=== PATIENT | male | born 1955 | race Caucasian/White ===

== ENCOUNTER → 2019-01-28 | Outpatient (CLI) | payer OTHER ==
--- NOTE | 2019-01-28 12:30 | XR ---
EXAMINATION TYPE: XR lumbosacral spine min 4V DATE OF EXAM: 01/28/2019 CLINICAL HISTORY: Lumbago. Left sciatica pain. TECHNIQUE: Frontal, lateral, and oblique images of the lumbar spine are obtained. COMPARISON: None FINDINGS: There are 5 lumbar type vertebral bodies identified. The lumbar spine shows satisfactory alignment without evidence of acute fracture or dislocation. Vertebral body heights and disk space he ights are within normal limits. There is mild retrolisthesis of L2 on L3, L3 on L4, and L4 on L5. Mod erate multilevel degenerative disc disease is seen as facet arthropathy, anterior osteophytes, interv ertebral disc space narrowing, and end plate sclerosis at multiple levels. Oblique images demonstrate no evidence of pars interarticularis defects. Neural foraminal narrowing is seen bilaterally at L4-L 5. The overlying soft tissue appears unremarkable. IMPRESSION: No acute fracture is seen in the lumbar spine. Multilevel malalignment is likely on a de generative basis. Moderate multilevel degenerative disc disease of the lumbar spine resulting in mild radiographic neural foraminal narrowing at L4-L5 bilaterally. This could be more accurately assessed with MRI.
== END | disposition home or self-care (01) ==
LOC: RADXRYALE 11:54
PROVIDERS: ATTEND Physician Assistant Medical
DX: M48.061 Spinal stenosis, lumbar region without neurogenic claudication (principal); M51.16 Intervertebral disc disorders with radiculopathy, lumbar region
CPT/HCPCS: 72110

== ENCOUNTER → 2019-02-06 | Outpatient (CLI) | payer OTHER ==
--- NOTE | 2019-02-06 22:18 | MR ---
EXAMINATION TYPE: MR lumbar spine wo/w con DATE OF EXAM: 02/06/2019 COMPARISON: Lumbar spine x-ray January 28, 2019. HISTORY: Lumbago with sciatica, left side and other intervertebral disc degeneration and weakness all per order. Back pain for 1.5 years extending into left lower extremity per patient. TECHNIQUE: Multiplanar, multisequence images of the lumbar spine is performed without and with IV contrast, util izing 13.5 mL intravenous Gadavist FINDINGS: Sagittal images of the lumbar spine show vertebral body heights to remain satisfactory. Mul tiple Schmorl nodes are identified in the endplates. Straightened alignment is redemonstrated. Multil evel disc desiccation is present. There is moderate disc space narrowing L2-L3 and L4-L5 levels with moderate anterior spurring and heterogeneous moderately opaque to endplate changes most prominent at L4-L5 level. There is vacuum disc phenomenon L5-S1 level. Small hemangioma seen posterior inferior L1 level. The conus medullaris is somewhat low in position in the mid L2 level without abnormal signal . Post contrast images show no suspicious enhancement. There is evidence of prior surgery with master brewer ior spinous process resection L2-L5 levels noted. Axial images at T12-L1 and L1-L2 levels show mild facet degenerative changes bilaterally but spinal c anal is preserved and bilateral neural foramina are patent. Axial images at L2-L3 level show moderate broad disc bulge mildly effacing the anterior thecal sac. T here is [id number] facet degenerative changes bilaterally. Spinous process resection is noted. There is mild bilateral anterior inferior neural foraminal narrowing appreciated. Axial images at the L3-L4 level show moderate broad disc bulge. There is prominence of epidural fat a t this level anteriorly so no spinal canal effacement. There is mild/moderate facet degenerative damico ges bilaterally. Posterior spinous process resection is noted. There is [id number] bilateral an terior inferior neural foraminal narrowing at this level identified. Axial images at the L4-L5 level moderate to advanced broad disc bulge without thecal sac effacement a s there is prominent anterior epidural fat redemonstrated. There is moderate facet degenerative mcclain es bilaterally. Posterior spinous process resection is noted. There is moderate to advanced bilateral neural foraminal narrowing encroaching on both L4 nerves worse on the right side sagittal image 13. Axial images at the L5-S1 level show moderate facet degenerative changes bilaterally. There is mild-t o-moderate broad disc bulge not effacing the anterior thecal sac as there is prominent anterior epidu ral fat noted even more prominent than more cranial levels. There is mild right and more advanced lef t-sided neural foraminal narrowing due to foraminal disc protrusion component which encroaches on the left L5 nerve axial image 5 and sagittal image 5. Posterior spinous process resection is noted. No suspicious incidental retroperitoneal findings are seen. IMPRESSION: Postsurgical change L2-L5 level. Multilevel degenerative changes seen most prominent in t he mid to lower lumbar spine. Attention to the L5-S1 level where eccentric left foraminal disc hernia tion or protrusion component causes advanced left-sided neural foraminal narrowing and encroachment o n the left L5 nerve likely accounting for patient's symptoms.
== END | disposition home or self-care (01) ==
LOC: RADMRIMAIN 14:10
PROVIDERS: ATTEND Family Medicine
DX: M48.07 Spinal stenosis, lumbosacral region (principal); M51.27 Other intervertebral disc displacement, lumbosacral region; M47.816 Spondylosis without myelopathy or radiculopathy, lumbar region
CPT/HCPCS: 72158; A9585

== ENCOUNTER → 2021-01-13 | Outpatient (CLI) | payer MEDICARE, OTHER ==
--- NOTE | 2021-01-13 11:54 | XR ---
EXAMINATION TYPE: XR cervical spine comp DATE OF EXAM: 01/13/2021 CLINICAL HISTORY: pain COMPARISON: 04/20/2016 TECHNIQUE: Frontal, lateral, oblique, swimmers, and open mouth view of the cervical spine are obtaine d. FINDINGS: Postoperative changes of cervical fusion and discectomy. Anterior cervical fixation plate i s in place extending from C3 through C7. Intervertebral spacers are in place. IMPRESSION: Stable postoperative alignment.
== END | disposition home or self-care (01) ==
LOC: RADXRYALE 11:31
PROVIDERS: ATTEND Physician Assistant Medical
DX: Z98.890 Other specified postprocedural states (principal)
CPT/HCPCS: 72050

== ENCOUNTER → 2021-05-03 | Outpatient (CLI) | payer MEDICARE, OTHER ==
--- NOTE | 2021-05-03 16:01 | XR ---
EXAMINATION TYPE: XR lumbosacral spine 5 views DATE OF EXAM: 05/03/2021 Comparison: 26/03/2019 Clinical History: 65-year-old male [id number], M5442, M461 LBP, SCIATICA, SACROILIITIS Findings: Moderate degenerative disc disease L4-L5 and L5-S1. Mild additional levels. Prominent anterior endpla te spondylosis. Hypertrophic facet arthropathy mid to lower lumbar spine. There are laminectomy mcclain es at the L2 level. Trace grade 1 retrolisthesis L2-L3, L3-L4, L4-L5 remains unchanged. Straightening of the normal lumbar liver process. Vertebral body heights are preserved. Impression: 1. Overall stable exam with laminectomies from L2 down to L5 and degenerative trace grade 1 retrolist hesis from L2 through L5 levels as well. 2. Facet arthropathy throughout. Moderate degenerative disc disease L4-S1 levels and mild elsewhere i n the lumbar spine.
== END ==
LOC: RADXRYALE 14:14
PROVIDERS: ATTEND Family Medicine
DX: M54.5 Low back pain (principal); M54.42 Lumbago with sciatica, left side; M46.1 Sacroiliitis, not elsewhere classified; M51.36 Other intervertebral disc degeneration, lumbar region
CPT/HCPCS: 72110

== ENCOUNTER → 2021-09-13 | Outpatient (CLI) | payer MEDICARE, OTHER ==
[2021-09-13 18:52] LABS: HCT 33.5 % (39.6-50.0); HGB 10.7 g/dL (13.0-17.0); MCH 36.5 pg (27.0-32.0); MCHC 31.9 g/dL (32.0-37.0); MCV 114.3 fL (80.0-97.0); Mean Platelet Volume 10.1 fL (9.5-12.2); Platelet Count 134 X 10*3/uL (140-440); RBC 2.93 X 10*6/uL (4.40-5.60); RDW 18.5 % (11.5-14.5)
[2021-09-13 21:10] LABS: African American GFR (CKD) 66.1 (60.0-200.0); Anion Gap 14.5 mmol/L (4.00-12.00); BUN/Creat Ratio 19.46 Ratio (12.00-20.00); Blood Urea Nitrogen 25.1 mg/dL (9.0-27.0); Carbon Dioxide 26.8 mmol/L (21.6-31.8); Potassium 4.8 mmol/L (3.5-5.5)
== END | disposition home or self-care (01) ==
LOC: LABWHC1 11:36
PROVIDERS: ATTEND Internal Medicine Cardiovascular Disease
DX: I48.0 Paroxysmal atrial fibrillation (principal)
CPT/HCPCS: 36415; 80048; 84443; 85027

== ENCOUNTER 2024-10-19 09:09 | Inpatient (IN) | payer MEDICARE ==
--- NOTE | 2024-10-19 09:56 | ED ---
General Adult HPI - General Chief complaint: Weakness Stated complaint: Weakness Time Seen by Provider: 10/19/24 09:34 Source: patient, family, RN notes reviewed Mode of arrival: wheelchair Limitations: no limitations - History of Present Illness Initial comments: Patient is a 69-year-old male presenting to the emergency department with general weakness. Symptoms have progressed over months. Patient has extreme fatigue and some dyspnea with exertion, even using his walker, even 10 to 20 feet. Patient does have some increased edema and is concerned he is filling up with fluid. Patient has seen his regular doctor and hr generalist recently and he has plans for echo and ultrasound of his kidneys. Patient does have known anemia. No bleeding. - Related Data Home Medications Medication Instructions Recorded Confirmed HYDROcodone/APAP 7.5-325MG [[place] 1 tab PO Q6HR PRN 11/16/15 12/10/15 7.5-325] carisoprodoL [Soma] 350 mg PO TID PRN 11/16/15 12/10/15 Indomethacin [Indocin] 50 mg PO TID PRN 12/07/15 12/10/15 Metoprolol Tartrate [Lopressor] 100 mg PO HS 12/07/15 12/10/15 Olmesartan/Amlodipin/Hcthiazid 1 tab PO DAILY 12/07/15 12/10/15 [Tribenzor 40-10-25 mg Tablet] Previous Rx's Medication Instructions Recorded HYDROcodone/APAP 10-325MG [[place] 2 tab PO Q6H PRN #90 tab 12/11/15 10-325] diazePAM [Valium] 5 mg PO TID #60 tab 12/11/15 Allergies Allergy/AdvReac Type Severity Reaction Status Date / Time No Known Allergies Allergy Verified 10/19/24 09:23 Review of Systems ROS Statement: Those systems with pertinent positive or pertinent negative responses have been documented in the HPI. ROS Other: All systems not noted in ROS Statement are negative. Constitutional: Denies: fever Eyes: Denies: eye pain ENT: Denies: ear pain Respiratory: Reports: as per HPI Cardiovascular: Reports: dyspnea on exertion, edema. Denies: chest pain Endocrine: Reports: fatigue Past Medical History Past Medical History: Heart Failure, Hypertension Additional Past Medical History / Comment(s): gout, neuropathy, drop foot, anemia, tinnitus History of Any Multi-Drug Resistant Organisms: None Reported Past Surgical History: Back Surgery Additional Past Surgical History / Comment(s): 12-10-15 C3-4,C4-5,C5-6,C67 ANT CERVIAL DISCECTOMY/FUSION WITH ALLOGRAFT AND PLATE. Past Anesthesia/Blood Transfusion Reactions: No Reported Reaction Past Psychological History: No Psychological Hx Reported Smoking Status: Never smoker Past Alcohol Use History: Daily, Heavy - Past Family History Father Brother(s) Family Medical History: Cancer General Exam Limitations: no limitations General appearance: alert, in no apparent distress Head exam: Present: normocephalic Eye exam: Present: normal appearance Neck exam: Present: normal inspection Respiratory exam: Present: normal lung sounds bilaterally Cardiovascular Exam: Present: bradycardia GI/Abdominal exam: Present: soft. Absent: tenderness Extremities exam: Present: pedal edema. Absent: calf tenderness Neurological exam: Present: alert, oriented X3, CN II-XII intact. Absent: motor sensory deficit Psychiatric exam: Present: normal affect, normal mood Skin exam: Present: normal color Course Vital Signs 10/19/24 10/19/24 10/19/24 09:23 10:20 10:59 Temperature 97.7 F Pulse Rate 55 L 53 L Respiratory 18 20 19 Rate Blood Pressure 97/60 92/56 O2 Sat by Pulse 95 95 Oximetry EKG Findings - EKG Results: EKG: interpreted by ERMD (Left axis. Right bundle branch block. Left anterior fascicular block.), normal ST/T EKG shows: bradycardia, atrial fibrillation Medical Decision Making - Medical Decision Making Was pt. sent in by a medical professional or institution (, PA, [employer], urgent care, hospital, or alf...) When possible be specific @ -No Did you speak to anyone other than the patient for history (EMS, parent, family, police, friend...)? What history was obtained from this source @ - is present and provides significant amount of history including symptoms and onset and past history Did you review nursing and triage notes (agree or disagree)? Why? @ -I reviewed and agree with nursing and triage notes Were old charts reviewed (outside hosp., previous admission, EMS record, old EKG, old radiological studies, urgent care reports/EKG's, alf records)? Report findings @ -Previous chest x-ray reviewed Differential Diagnosis (chest pain, altered mental status, abdominal pain women, abdominal pain men, vaginal bleeding, weakness, fever, dyspnea, syncope, headache, dizziness, GI bleed, back pain, seizure, CVA, palpatations, mental health, musculoskeletal)? @ -Differential Weakness: Hypoglycemia, shock, sepsis, hyponatremia, anemia, infection, [place], ETOH, adverse medicine reaction, overdose, stroke, this is not meant to be an all-inclusive list. EKG interpreted by me (3pts min.). @ -As above X-rays interpreted by me (1pt min.). @ -Chest x-ray shows cardiomegaly CT interpreted by me (1pt min.). @ -None done U/S interpreted by me (1pt. min.). @ -None done What testing was considered but not performed or refused? (CT, X-rays, U/S, labs)? Why? @ -None What meds were considered but not given or refused? Why? @ -None Did you discuss the management of the patient with other professionals (professionals i.e. , PA, [employer], lab, RT, psych nurse, social media marketing analyst, supervisor shearing, teacher, parking enforcement officer, patient case coordinator)? Give summary @ -Case discussed with Dr. Mack who will admit covering Dr. Lopez me Was smoking cessation discussed for >3mins.? @ -No Was critical care preformed (if so, how long)? @ -No Were there social determinants of health that impacted care today? How? (Holden elessness, low income, unemployed, alcoholism, drug addiction, transportation, low edu. Level, literacy, decrease access to med. care, group home, rehab)? @ -No Was there de-escalation of care discussed even if they declined (Discuss DNR or withdrawal of care, Hospice)? DNR status @ -No What co-morbidities impacted this encounter? (DM, HTN, Smoking, COPD, CAD, Cancer, CVA, ARF, Chemo, Hep., AIDS, mental health diagnosis, sleep apnea, morbid obesity)? @ -None Was patient admitted / discharged? Hospital course, mention meds given and route, prescriptions, significant lab abnormalities, going to OR and other pertinent info. @ -Patient presents with increased edema and fatigue and exertional dyspnea. Patient appears fluid overloaded on exam. Patient has acute kidney injury on evaluation. Patient to be admitted. Admission orders written. Undiagnosed new problem with uncertain prognosis? @ -No Drug Therapy requiring intensive monitoring for toxicity (Heparin, Nitro, Insulin, Cardizem)? @ -No Were any procedures done? @ -No Diagnosis/symptom? @ -Acute kidney injury, edema Acute, or Chronic, or Acute on Chronic? @ -Acute, acute Uncomplicated (without systemic symptoms) or Complicated (systemic symptoms)? @ -Default Side effects of treatment? @ -No Exacerbation, Progression, or Severe Exacerbation? @ -No Poses a threat to life or bodily function? How? (Chest pain, [place], [place], pneumonia, PE, COPD, DKA, ARF, appy, cholecystitis, CVA, Diverticulitis, Homicidal, Suicidal, threat to staff... and all critical care pts) @ -Threat to renal function - Lab Data Result diagrams: 10/19/24 10:38 10/19/24 10:38 Lab Results 10/19/24 10/19/24 10/19/24 Range/Units 10:38 10:38 10:38 WBC 5.0 (3.8-10.6) k/uL RBC 1.95 L (4.30-5.90) m/uL Hgb 8.5 L (13.0-17.5) gm/dL Hct 25.7 L (39.0-53.0) % MCV 131.6 H (80.0-100.0) fL MCH 43.4 H (25.0-35.0) pg MCHC 33.0 (31.0-37.0) g/dL RDW 15.0 (11.5-15.5) % Plt Count 156 (150-450) k/uL MPV 8.0 Neutrophils % 72 % Lymphocytes % 16 % Monocytes % 8 % Eosinophils % 3 % Basophils % 0 % Neutrophils # 3.6 (1.3-7.7) k/uL Lymphocytes # 0.8 L (1.0-4.8) k/uL Monocytes # 0.4 (0-1.0) k/uL Eosinophils # 0.1 (0-0.7) k/uL Basophils # 0.0 (0-0.2) k/uL Manual Slide Review Performed Hypochromasia Moderate Macrocytosis Marked A PT 11.0 (10.0-12.5) sec INR 1.0 (<1.2) APTT 25.1 (22.0-30.0) sec Sodium 139 (137-145) mmol/L Potassium 4.7 (3.5-5.1) mmol/L Chloride 107 (98-107) mmol/L Carbon Dioxide 25 (22-30) mmol/L Anion Gap 7 mmol/L BUN 55 H (9-20) mg/dL Creatinine 2.26 H (0.66-1.25) mg/dL Est GFR (CKD-EPI)AfAm 33 (>60 ml/min/1.73 sqM) Est GFR (CKD-EPI)NonAf 28 (>60 ml/min/1.73 sqM) Glucose 96 (74-99) mg/dL Plasma Lactic Acid Parminder (0.7-2.0) mmol/L Calcium 8.9 (8.4-10.2) mg/dL Magnesium 2.7 H (1.6-2.3) mg/dL Total Bilirubin 1.1 (0.2-1.3) mg/dL AST 22 (17-59) U/L ALT 11 (4-49) U/L Alkaline Phosphatase 70 (38-126) U/L Troponin I (0.000-0.034) ng/mL NT-Pro-B Natriuret Pep 3420 pg/mL Total Protein 5.9 L (6.3-8.2) g/dL Albumin 3.6 (3.5-5.0) g/dL TSH 11.000 H (0.465-4.680) mIU/L Free T4 0.99 (0.78-2.19) ng/dL Serum Alcohol 71 mg/dL 10/19/24 10/19/24 Range/Units 10:38 10:38 WBC (3.8-10.6) k/uL RBC (4.30-5.90) m/uL Hgb (13.0-17.5) gm/dL Hct (39.0-53.0) % MCV (80.0-100.0) fL MCH (25.0-35.0) pg MCHC (31.0-37.0) g/dL RDW (11.5-15.5) % Plt Count (150-450) k/uL MPV Neutrophils % % Lymphocytes % % Monocytes % % Eosinophils % % Basophils % % Neutrophils # (1.3-7.7) k/uL Lymphocytes # (1.0-4.8) k/uL Monocytes # (0-1.0) k/uL Eosinophils # (0-0.7) k/uL Basophils # (0-0.2) k/uL Manual Slide Review Hypochromasia Macrocytosis PT (10.0-12.5) sec INR (<1.2) APTT (22.0-30.0) sec Sodium (137-145) mmol/L Potassium (3.5-5.1) mmol/L Chloride (98-107) mmol/L Carbon Dioxide (22-30) mmol/L Anion Gap mmol/L BUN (9-20) mg/dL Creatinine (0.66-1.25) mg/dL Est GFR (CKD-EPI)AfAm (>60 ml/min/1.73 sqM) Est GFR (CKD-EPI)NonAf (>60 ml/min/1.73 sqM) Glucose (74-99) mg/dL Plasma Lactic Acid Parminder 2.8 H* (0.7-2.0) mmol/L Calcium (8.4-10.2) mg/dL Magnesium (1.6-2.3) mg/dL Total Bilirubin (0.2-1.3) mg/dL AST (17-59) U/L ALT (4-49) U/L Alkaline Phosphatase (38-126) U/L Troponin I <0.012 (0.000-0.034) ng/mL NT-Pro-B Natriuret Pep pg/mL Total Protein (6.3-8.2) g/dL Albumin (3.5-5.0) g/dL TSH (0.465-4.680) mIU/L Free T4 (0.78-2.19) ng/dL Serum Alcohol mg/dL Disposition Clinical Impression: Acute kidney injury Disposition: ADMITTED IP TO THIS HOSP Is patient prescribed a controlled substance at d/c from ED?: No Referrals: Paulino Alberts DO [Primary Care Provider] - 1-2 days Time of Disposition: 12:37
[2024-10-19] MEDS: FUROSEMIDE 10 MG/ML 4 ML VIAL IV STA (10:32)
[2024-10-19 10:52] LABS: Basophils % (A) 0 %; Eosinophils # (A) 0.1 k/uL (0-0.7); Eosinophils % (A) 3 %; HCT 25.7 % (39.0-53.0); HGB 8.5 gm/dL (13.0-17.5); Hypochromasia Moderate; Lymphocytes # (A) 0.8 k/uL (1.0-4.8); Lymphocytes % (A) 16 %; Macrocytosis Marked; Monocytes # (A) 0.4 k/uL (0-1.0); Monocytes % (A) 8 %; Neutrophils # (A) 3.6 k/uL (1.3-7.7); Neutrophils % (A) 72 %; Platelet Count 156 k/uL (150-450); RBC 1.95 m/uL (4.30-5.90)
[2024-10-19 11:05] LABS: Partial Thromboplastin Time 25.1 sec (22.0-30.0)
[2024-10-19 11:07] LABS: ALT 11 U/L (4-49); AST 22 U/L (17-59); African American GFR (CKD) 33 (>60 ml/min/1.73 sqM); Albumin 3.6 g/dL (3.5-5.0); Alcohol 71 mg/dL; Alkaline Phosphatase 70 U/L (38-126); Anion Gap 7 mmol/L; Blood Urea Nitrogen 55 mg/dL (9-20); Calcium 8.9 mg/dL (8.4-10.2); Carbon Dioxide 25 mmol/L (22-30); Chloride 107 mmol/L (98-107); Glucose 96 mg/dL (74-99); Magnesium 2.7 mg/dL (1.6-2.3); Non-African American GFR(CKD) 28 (>60 ml/min/1.73 sqM); Potassium 4.7 mmol/L (3.5-5.1); Sodium 139 mmol/L (137-145); Total Bilirubin 1.1 mg/dL (0.2-1.3); Total Protein 5.9 g/dL (6.3-8.2)
--- NOTE | 2024-10-19 11:11 | XR ---
EXAMINATION TYPE: XR chest 2V DATE OF EXAM: 10/19/2024 CLINICAL HISTORY: Weakness TECHNIQUE: Frontal and lateral views of the chest are obtained. COMPARISON: 12/04/2015 FINDINGS: There is no focal air space opacity, pleural effusion, or pneumothorax seen. The cardiac silhouette size is within normal limits. The osseous structures are intact. IMPRESSION: No acute cardiopulmonary process. [facility], , 10/19/2024 11:09 AM
[2024-10-19 11:13] LABS: MCH 43.4 pg (25.0-35.0)
[2024-10-19 11:14] LABS: MCV 131.6 fL (80.0-100.0)
[2024-10-19 11:17] LABS: NT-Pro-B-Type Natriuretic Pept 3420 pg/mL
[2024-10-19 11:25] LABS: T4, Free (Free Thyroxine) 0.99 ng/dL (0.78-2.19)
[2024-10-19] MEDS ORDERED: NALOXONE 0.4 MG/ML 1 ML VIAL IV PRN (12:38)
[2024-10-19 13:24] LABS: Appearance,Urine Clear (Clear); Bilirubin,Urine Negative (Negative); Blood,Urine Negative (Negative); Color,Urine Colorless; Glucose,Urine (UA) Negative (Negative); Hyaline Casts,Urine 10 /lpf (0-2); Ketones,Urine Negative (Negative); Leukocyte Esterase,Urine Trace (Negative); Mucus,Urine Rare /hpf; Nitrite,Urine Negative (Negative); Protein,Urine Negative (Negative); RBC,Urine <1 /hpf (0-5); Specific Gravity,Urine 1.009 (1.001-1.035); Squamous Epithelial Cell,Urine <1 /hpf (0-4); Urobilinogen,Urine <2.0 mg/dL (<2.0); WBC,Urine 4 /hpf (0-5)
--- NOTE | 2024-10-19 14:39 | US ---
EXAMINATION TYPE: US kidneys/renal and bladder DATE OF EXAM: 10/19/2024 COMPARISON: NONE CLINICAL INDICATION: Male, 69 years old with history of edema; TECHNIQUE: Grayscale imaging of the bilateral kidneys and urinary bladder: FINDINGS: EXAM MEASUREMENTS: Right Kidney: 12.2 x 6.4 x 5.9 cm Left Kidney: 11.4 x 7.7 x 6.1 cm Right Kidney: Inferior cystic area measuring 2.6 x 4.2 x 2.7 Left Kidney: Cystic area measuring 2.8 x 3.2 x 3.0 cm Bladder: Anechoic, 70ml Bilateral Jets seen: N There is no evidence for hydronephrosis at this point in time. No nephrolithiasis is seen. No jenny s are identified. The urinary bladder is anechoic. IMPRESSION: 1. No sonographic evidence of acute obstructive uropathy. 2. Simple appearing cyst in the inferior right kidney measuring 4.2 cm. [facility], , 10/19/2024 2:36 PM
--- NOTE | 2024-10-19 14:50 | P.HPIM ---
History of Present Illness H&P Date: 10/19/24 History of Presenting Illness: Patient is a pleasant 69-year-old male with a past medical history of hypertension, congestive heart failure unknown type, atrial fibrillation no longer on anticoagulation per recommendations of his PCP secondary to low hemogl obin, chronic back pain status post cervical discectomy and fusion, bilateral lower extremity peripheral neuropathy, and daily alcohol use/abuse reported drinking approximately a fifth of liquor daily. He presented to the emergency department with his secondary to complaints of increasing fatigue, generalized weakness, and significant lower extremity edema. Patient's reports he has been battling with lower extremity edema off and on over the past months but states over the last month this edema has progressively worsened and he can no longer even lift his legs or stand up to move secondary to severe swelling that is now went from initially only being in his ankles to now extending up into his thighs and abdomen. In addition patient reports exertional dyspnea and orthopnea. He states he has been following up with his PCP and is scheduled to undergo an echocardiogram, ultrasound of his kidneys, and an upper and lower endoscopy in the next month. He denies having any heada noemí, lightheadedness, dizziness, chest pain, palpitations, shortness of breath at rest, cough or congestion, or any other complaints at time. He does report having a poor appetite secondary to the amount of swelling in his abdomen. Patient does report drinking a fifth of liquor daily, last drink being this morning. Upon arrival to our facility, patient underwent evaluation in the emergency department. Vital signs upon arrival showing blood pressure 97/60, heart rate 55, respiratory rate 18, temp 97.7 F, and SpO2 of 95% on room air. EKG was completed showing atrial fibrillation with a slowed ventricular response of 52 bpm. Chest x-ray negative for acute cardiopulmonary process. Labs completed and reviewed. CBC showing macrocytic anemia with hemoglobin of 8.5 and MCV of 131.6. Coagulation profile normal findings. BMP showing acute kidney injury with BUN of 55, creatinine of 2.26, and GFR of 28 (most recent lab draws completed in 2020 showing a creatinine of 1.3). Lactic acid 2.8. Magnesium 2.7. Liver enzymes normal findings. Troponin negative at less than 0.012 and proBNP 3420. TSH was elevated at 11.00 with normal free T4 of 0.99. Urinalysis negative for blood, ketones, protein, or infection. Serum alcohol level was elevated at 71. Ultrasound kidneys, ureters, and bladder showing no evidence of acute obstructive uropathy revealing a simple appearing cyst in the inferior right kidney measuring 4.2 cm. Patient was given IV Lasix 40 mg IVP x 1 dose and admitted under our services with consultation to cardiology and nephrology. Review of systems: Pertinent positives and negatives as discussed in HPI, a complete review of systems was performed and all other systems are negative. Physical exam: Vital signs reviewed and stable. General: Nontoxic, no distress and appears stated age. Obese. Derm: Skin warm and dry, normal coloration for ethnicity. Head: Atraumatic, normocephalic and symmetric. Eyes: EOM's intact, no lid lag, and anicteric sclera Mouth: no lip lesions, mucus membranes moist Cardiovascular: regular rate and rhythm with normal S1S2, systolic murmur, and cap refill < 2 seconds. Lungs: Respirations even, regular, and unlabored on room air. Lungs diminished, no rhonchi, no rales, no wheezing, and no accessory muscle usage. Abdominal: Obese taut distended abdomen, nontender to palpation, no guarding. Ext: No gross muscle atrophy, 3-4+ pitting BLE edema extending up into thighs and abdomen. Pt denies scrotal edema. edema, movement and sensation intact. Patient reports severe peripheral neuropathy when ambulating. Neuro: Speech clear, face symmetrical and CN II-XII grossly intact with no noted focal neuro deficits Psych: Alert and oriented to person, place, time, and situation. Appropriate and pleasant affect. Assessment and Plan of Care: Acute exacerbation of chronic heart failure, unknown type pending echocardiogram Significant bilateral lower extremity edema extending into thighs and upwards into abdomen -Cardiology consulted, appreciate recommendations -Telemetry monitoring -ProBNP 3420 and troponin was negative at less than 0.012. -Daily weights and strict monitoring of I's and O's -Lasix 40 mg IVP every 8 hours -Order placed for liver ultrasound to rule out cirrhosis and ascites -Echocardiogram to be completed -Continued close monitoring of electrolytes while diuresing. Acute kidney injury, suspect underlying chronic kidney disease -Renal ultrasound showing no evidence of acute obstructive uropathy revealing a simple appearing cyst in the inferior right kidney measuring 4.2 cm. -Urinalysis negative for protein, ketones, blood, or infection. -Consult placed to nephrology, appreciate recommendations. -Patient requiring IV diuresis at this time, will hold other nephrotoxic medications including olmesartan 40 mg daily. -Order placed for bladder scanning to monitor for postvoid residuals and/or retention. -Continue strict I's and O's. Alcohol intoxication in active alcoholic, likely impending withdraw Lactic acidosis -Serum alcohol level elevated at 71 at time of arrival. Patient reports d rinking a fifth of liquor daily. Denies history of hospitalization for withdrawal but states daily drinking for many many years. -Order placed for monitoring of CIWA scores and patient to be medicated with Ativan 0.5 mg every 4 hours as needed for CIWA score of 4-5, Ativan 1 mg every 4 hours for CIWA score of 6-7, Ativan 2 mg every 3 hours CIWA score of 8-9, and Ativan 2 mg every 2 hours forr CIWA score of 10 or greater. -Thiamine 100 mg daily, and Multivitamin daily, and Folate 1 mg daily -Seizure and fall precautions in place. -Continued close monitoring of electrolytes and replace as needed. -Telemetry monitoring. Macrocytic anemia -Unclear cause possibly secondary to underlying undiagnosed cirrhosis versus CKD, versus GI bleed. -Patient denies melena or hematochezia and denies any episodes of hematemesis. Reports his PCP wanted him to go for an upper and lower GI to rule out GI bleed and took him off of his blood thinner. -Secondary to history of atrial fibrillation and no known GI bleed and reports of ongoing anemia over the past few months, will place patient on subcu heparin for DVT prophylaxis. If hemoglobin drops will discontinue and place patient on DVT prophylaxis with SCDs. -Order placed for iron profile. -Patient to continue thiamine 100 mg daily, multivitamin daily, and folic acid 1 mg daily. -Continue close monitoring of hemoglobin levels with repeat morning CBC. Chronic atrial fibrillation, currently slowed ventricular rate -Patient no longer on anticoagulation, states PCP took him off secondary to low hemoglobin levels. -Pending further workup at this time we will place patient on DVT prophylaxis with heparin 5000 units every 12 hours continue to monitor closely. Hypertension -Monitor vital signs and continue metoprolol 200 mg daily (parameters placed to hold for systolic pressure less than 100 and/or heart rate less than 55). Data and imaging reviewed: As stated above in HPI The patient is admitted with an anticipated greater than 2 midnight stay for evaluation of acute exacerbation of chronic heart failure CODE STATUS: Full code DVT prophylaxis: Heparin Anticipated discharge date: Pending clinical course Anticipated discharge place: Pending clinical course Patient was seen independently by Nurse Practitioner. This document was prepared using [employer] dictation software. Please allow for errors in greens or grounds superintendent while rare they do occur. Cosme Lopez NP rendered care for this patient independently, reviewed the findings and plan as documented in the note above and agree with plan. I did not physically speak with or examine the patient on this date. Past Medical History Past Medical History: Heart Failure, Hypertension Additional Past Medical History / Comment(s): gout, neuropathy, drop foot, anemia, tinnitus History of Any Multi-Drug Resistant Organisms: None Reported Past Surgical History: Back Surgery Additional Past Surgical History / Comment(s): 12-10-15 C3-4,C4-5,C5-6,C67 ANT CERVIAL DISCECTOMY/FUSION WITH ALLOGRAFT AND PLATE. Past Anesthesia/Blood Transfusion Reactions: No Reported Reaction Past Psychological History: No Psychological Hx Reported Smoking Status: Never smoker Past Alcohol Use History: Daily, Heavy - Past Family History Father Brother(s) Family Medical History: Cancer Medications and Allergies Home Medications Medication Instructions Recorded Confirmed Type Metoprolol Tartrate [Lopressor] 200 mg PO DAILY 12/07/15 10/19/24 History Cyanocobalamin (Vitamin B-12) 1,000 mcg PO DAILY 10/19/24 10/19/24 History [Vitamin B-12] Folic Acid 470mg 470 mg PO DAILY 10/19/24 10/19/24 History Glucosamine Sulfate 1,000 mg PO DAILY 10/19/24 10/19/24 History Levothyroxine Sodium [Synthroid] 50 mcg PO AC-BRKFST 10/19/24 10/19/24 History Olmesartan Medoxomil 40 mg PO DAILY 10/19/24 10/19/24 History Thiamine [Vitamin B-1] 100 mg PO DAILY 10/19/24 10/19/24 History amLODIPine [Norvasc] 10 mg PO DAILY 10/19/24 10/19/24 History hydroCHLOROthiazide [Hydrodiuril] 25 mg PO DAILY 10/19/24 10/19/24 History Allergies Allergy/AdvReac Type Severity Reaction Status Date / Time furosemide [From Lasix] AdvReac Diarrhea Verified 10/19/24 15:48 Physical Exam Vitals: Vital Signs Temp Pulse Resp BP Pulse Ox 10/19/24 10:59 19 10/19/24 10:20 53 L 20 92/56 95 10/19/24 09:23 97.7 F 55 L 18 97/60 95 Intake and Output 10/18/24 10/19/24 10/19/24 22:59 06:59 14:59 Other: Weight 136.078 kg Results CBC & Chem 7: 10/19/24 10:38 10/19/24 10:38 Labs: Abnormal Lab Results - Last 24 Hours (Table) 10/19/24 10/19/24 10/19/24 Range/Units 10:38 10:38 10:38 RBC 1.95 L (4.30-5.90) m/uL Hgb 8.5 L (13.0-17.5) gm/dL Hct 25.7 L (39.0-53.0) % MCV 131.6 H (80.0-100.0) fL MCH 43.4 H (25.0-35.0) pg Lymphocytes # 0.8 L (1.0-4.8) k/uL Macrocytosis Marked A BUN 55 H (9-20) mg/dL Creatinine 2.26 H (0.66-1.25) mg/dL Plasma Lactic Acid Parminder 2.8 H* (0.7-2.0) mmol/L Magnesium 2.7 H (1.6-2.3) mg/dL Total Protein 5.9 L (6.3-8.2) g/dL TSH 11.000 H (0.465-4.680) mIU/L
[2024-10-19] MEDS ORDERED: LORazepam 2 MG/ML INJ IV PRN ×3 (15:06)
[2024-10-19] MEDS ORDERED: LORazepam 1 MG TAB PO PRN (15:06)
[2024-10-19] MEDS: FUROSEMIDE 10 MG/ML 4 ML VIAL IV SCH (16:05)
--- NOTE | 2024-10-19 21:24 | US ---
EXAMINATION TYPE: US liver DATE OF EXAM: 10/19/2024 COMPARISON: NONE CLINICAL INDICATION: Male, 69 years old with history of evaluate liver for cirrhosis and rule out asc ites; Drinks a fifth per day. Hx ankle swelling that is now entire body swelling TECHNIQUE: Grayscale and color Doppler imaging of the right upper quadrant was performed. 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 Pancreas: Tail obscured by overlying bowel gas Liver: Increased attenuation, decreased visualization of vessels Gallbladder: Limited evaluation due to underdistention. Evidence for sonographic Anne's sign: No CBD: Obstructing biliary lesion seen. Right Kidney: Simple cystic area seen Incidental - simple cystic area seen left kidney IMPRESSION: 1. Small volume free fluid in the right upper quadrant. 2. Increased hepatic parenchymal echogenicity suggesting steatosis and/or hepatocellular disease. [facility], , 10/19/2024 9:21 PM
[2024-10-19] MEDS: HEPARIN SODIUM,PORCINE 5,000 UNIT/ML 1 ML VIAL SQ SCH (22:11)
[2024-10-19] MEDS: LORazepam 0.5 MG TAB PO PRN (22:55)
[2024-10-20] MEDS: LEVOTHYROXINE 50 MCG TAB PO SCH (06:28)
--- NOTE | 2024-10-20 07:38 | CA ---
Transthoracic Echo Report Name: Bryson Salinas Age: 69 Gender: M : 1955 Exam Date: 10/19/2024 17:15 Exam Location: [facility] Ht (in): 72 Wt (lb): 300 Ordering Physician: Asif Jason DO Attending/Referring Phys: Tobacco Checkout Clerk Zandra Egan RDCS Procedure CPT: Indications: edema Cardiac Hx: Technical Quality: Very technically difficult study Contrast 1: Definity Total Dose (mL): 2 Contrast 2: Total Dose (mL): MEASUREMENTS (Male / Female) Normal Values 2D ECHO LV Diastolic Diameter PLAX 5.3 cm 4.2 - 5.9 / 3.9 - 5.3 cm LV Systolic Diameter PLAX 4.5 cm IVS Diastolic Thickness 1.3 cm 0.6 - 1.0 / 0.6 - 0.9 cm LVPW Diastolic Thickness 1.6 cm 0.6 - 1.0 / 0.6 - 0.9 cm LV Relative Wall Thickness 0.5 RV Internal Dim ED PLAX 3.6 cm LVOT Diameter 2.5 cm DOPPLER AV Peak Velocity 186.0 cm/s AV Peak Gradient 13.8 mmHg AV Mean Velocity 135.7 cm/s AV Mean Gradient 8.1 mmHg AV Velocity Time Integral 47.2 cm LVOT Peak Velocity 92.7 cm/s LVOT Peak Gradient 3.4 mmHg LVOT Velocity Time Integral 24.4 cm LVOT Stroke Volume 124.0 cm??? LVOT Stroke Volume Index 49.0 ml/m??? LVOT Cardiac Index 3184.5 cm???/min???m??? AV Area Cont Eq vti 2.6 cm??? AV Area Cont Eq pk 2.5 cm??? MV Area PHT 7.9 cm??? Mitral E Point Velocity 139.5 cm/s Mitral A Point Velocity 0.8 cm/s Mitral E to A Ratio 165.1 MV Deceleration Time 95.7 ms TR Peak Velocity 248.7 cm/s TR Peak Gradient 24.7 mmHg Right Ventricular Systolic Press 29.7 mmHg FINDINGS Left Ventricle Mildly increased left ventricular wall thickness. Left ventricle not well visualized. Left ventricular ejection fraction is estimated at 45-50%. Right Ventricle Right ventricle not well visualized. Normal right ventricular size. Right Atrium Right atrium not well visualized. Left Atrium Left atrium not well visualized. Mitral Valve Mitral valve not well visualized. No mitral stenosis. Aortic Valve No aortic stenosis. Trace aortic regurgitation. Trileaflet aortic valve. Aortic valve sclerosis. Tricuspid Valve Mild tricuspid regurgitation. Pulmonic Valve Structurally normal pulmonic valve. Pericardium No pericardial effusion. Aorta Normal size aortic root and proximal ascending aorta. CONCLUSIONS Very technically difficult study. Limited acoustic window LVEF 45-50% No significant aortic stenosis Valvular function cannot be assessed with good sensitive Previewed by: Dr Amish Bill (Electronically Signed) Final Date: 20 October 2024 07:37
[2024-10-20 08:21] LABS: ALT 11 U/L (4-49); AST 20 U/L (17-59); African American GFR (CKD) 39 (>60 ml/min/1.73 sqM); Albumin 3.8 g/dL (3.5-5.0); Albumin/Globulin Ratio 1.7; Alkaline Phosphatase 78 U/L (38-126); Anion Gap 10 mmol/L; Blood Urea Nitrogen 56 mg/dL (9-20); Calcium 9.3 mg/dL (8.4-10.2); Carbon Dioxide 25 mmol/L (22-30); Chloride 104 mmol/L (98-107); Globulin 2.2 g/dL; Glucose 108 mg/dL (74-99); Magnesium 2.4 mg/dL (1.6-2.3); Non-African American GFR(CKD) 34 (>60 ml/min/1.73 sqM); Potassium 4.5 mmol/L (3.5-5.1); Sodium 139 mmol/L (137-145); Total Bilirubin 2.1 mg/dL (0.2-1.3)
[2024-10-20] MEDS: amLODIPine 5 MG TAB PO SCH (08:28)
[2024-10-20] MEDS: FUROSEMIDE 10 MG/ML 4 ML VIAL IV SCH (08:28)
[2024-10-20] MEDS: THIAMINE 100 MG TAB PO SCH (08:28)
[2024-10-20] MEDS: METOPROLOL SUCCINATE (ER) 50 MG TAB.ER.24H PO SCH (08:28)
[2024-10-20] MEDS: MULTIVITAMINS, THERA 1 EACH TAB PO SCH (08:28)
[2024-10-20] MEDS: FOLIC ACID 1 MG TAB PO SCH (08:29)
[2024-10-20 08:34] LABS: Basophils % (A) 0 %; Eosinophils # (A) 0.1 k/uL (0-0.7); Eosinophils % (A) 1 %; HCT 25.1 % (39.0-53.0); HGB 8.3 gm/dL (13.0-17.5); Lymphocytes # (A) 0.5 k/uL (1.0-4.8); Lymphocytes % (A) 14 %; MCHC 33.2 g/dL (31.0-37.0); MCV 129.5 fL (80.0-100.0); Macrocytosis Marked; Mean Platelet Volume 8.1; Monocytes # (A) 0.3 k/uL (0-1.0); Monocytes % (A) 8 %; Neutrophils % (A) 76 %; Platelet Count 142 k/uL (150-450); RBC 1.94 m/uL (4.30-5.90); RDW 15.5 % (11.5-15.5)
--- NOTE | 2024-10-20 08:44 | P.CRDCN ---
History of Present Illness Consult date: 10/20/24 History of present illness: HISTORY OF PRESENTING ILLNESS 69-year-old with past medical history of hypertension, daily alcohol use, fifth of liquor every day, presented to the hospital because of increased fatigue, generalized weakness, increased lower extremity edema. Patient is a poor historian. He is not able to tell me if he has prior history of congestive heart failure or atrial fibrillation. On admission it is noticed that he was not atrial fibrillation with bradycardia with heart rate in 52 bpm. He denies any symptoms of chest pain chest pressure. He does endorse symptoms of orthopnea and paroxysmal nocturnal dyspnea. He also reports that he gets sh ort of breath with minimal exertion, NYHA class III symptoms. Patient was intoxicated at the time of admission, alcohol level of 71 on admission. REVIEW OF SYSTEMS 14 point review of system is negative except what is mentioned above in HPI. PHYSICAL EXAMINATION Vital signs reviewed. Head: Normocephalic. Eyes: Sclerae nonicteric. Neck: Brisk carotid upstroke, no jugular venous distention. Lungs: Clear to auscultation. Heart: Regular rate and rhythm, S1-S2, no S3, no murmur or rub. Abdomen: Soft nontender, positive bowel sounds. Extremities: No edema, intact distal pulses. Neuro: Alert, oritented, no focal deficits. Detailed neuro exam was not performed. ASSESSMENT Acute CHF exacerbation, HFrEF, EF 40%, NYHA class III, orthopnea Bilateral lower extremity edema Persistent atrial fibrillation, rate controlled. Bradycardic on admission. [id number] score 3 HOWIE CKD Daily heavy alcohol use. Fifth of alcohol every day Macrocytic anemia Suspect sleep apnea Obesity Cardiac testing NT-proBNP 2400, TSH 11, creatinine 1.9 EKG shows PLAN Obtain echocardiogram Start Eliquis 5 mg twice daily for elevated [id number] score Start B12 folate supplementation for anemia. Request primary team to workup his anemia Lasix 40 mg IV twice daily, metoprolol succinate 50 mg daily, amlodipine 5 mg daily . If kidney function improves, consider adding SGLT2/ARB and MRA Obtain HbA1c and lipid panel, troponin Considering his risk factors and mild cardiomyopathy, recommend ischemic evaluation with a stress test once optimized from congestive heart failure standpoint. Supportive care Outpatient workup for alcoholic liver disease Amish Bill MD, FACC, RPVI Past Medical History Past Medical History: Heart Failure, Hypertension, Thyroid Disorder Additional Past Medical History / Comment(s): gout, neuropathy, drop foot, anemia, tinnitus History of Any Multi-Drug Resistant Organisms: None Reported Past Surgical History: Back Surgery Additional Past Surgical History / Comment(s): 12-10-15 C3-4,C4-5,C5-6,C67 ANT CERVIAL DISCECTOMY/FUSION WITH ALLOGRAFT AND PLATE. Past Anesthesia/Blood Transfusion Reactions: No Reported Reaction Past Psychological History: No Psychological Hx Reported Additional Psychological History / Comment(s): OCC CLAUSTROPHOBIC. Smoking Status: Never smoker Past Alcohol Use History: Daily, Heavy Additional Past Alcohol Use History / Comment(s): CHEWS TOBACCO SINCE 1983. DRINKS 6-8 BEERS DAILY.-BUT STATED HAS'NT DRANK IN A FEW DAYS BEFORE SURGURY. Past Drug Use History: None Reported - Past Family History Father Brother(s) Family Medical History: Cancer Medications and Allergies Home Medications Medication Instructions Recorded Confirmed Type Metoprolol Tartrate [Lopressor] 200 mg PO DAILY 12/07/15 10/19/24 History Cyanocobalamin (Vitamin B-12) 1,000 mcg PO DAILY 10/19/24 10/19/24 History [Vitamin B-12] Folic Acid 470mg 470 mg PO DAILY 10/19/24 10/19/24 History Glucosamine Sulfate 1,000 mg PO DAILY 10/19/24 10/19/24 History Levothyroxine Sodium [Synthroid] 50 mcg PO AC-BRKFST 10/19/24 10/19/24 History Olmesartan Medoxomil 40 mg PO DAILY 10/19/24 10/19/24 History Thiamine [Vitamin B-1] 100 mg PO DAILY 10/19/24 10/19/24 History amLODIPine [Norvasc] 10 mg PO DAILY 10/19/24 10/19/24 History hydroCHLOROthiazide [Hydrodiuril] 25 mg PO DAILY 10/19/24 10/19/24 History Allergies Allergy/AdvReac Type Severity Reaction Status Date / Time furosemide [From Lasix] AdvReac Diarrhea Verified 10/19/24 15:48 Physical Exam Vitals: Vital Signs Temp Pulse Pulse Resp BP BP Pulse Ox 10/20/24 07:00 97.4 F L 72 17 135/78 94 L 10/20/24 01:21 98.2 F 89 17 120/68 96 10/19/24 21:49 70 10/19/24 20:00 97.7 F 70 17 112/69 96 10/19/24 18:00 72 19 119/64 97 10/19/24 17:32 68 19 116/64 97 10/19/24 13:22 98.8 F 56 L 18 112/48 97 10/19/24 11:00 56 L 16 110/82 94 L 10/19/24 10:59 19 10/19/24 10:30 58 L 17 99/50 97 10/19/24 10:20 53 L 20 92/56 95 10/19/24 09:23 97.7 F 55 L 18 97/60 95 Intake and Output 10/19/24 10/20/24 10/20/24 22:59 06:59 14:59 Output Total 250 550 Balance -250 -550 Output: Urine 250 550 Other: Voiding Method Urinal # Bowel Movements 1 Weight 136.078 kg 145.7 kg Results 10/20/24 07:51 10/20/24 07:51 Cardiac Enzymes 10/19/24 10/19/24 10/20/24 Range/Units 10:38 10:38 07:51 AST 22 20 (17-59) U/L Troponin I <0.012 (0.000-0.034) ng/mL Coagulation 10/19/24 Range/Units 10:38 PT 11.0 (10.0-12.5) sec APTT 25.1 (22.0-30.0) sec CBC 10/19/24 10/20/24 Range/Units 10:38 07:51 WBC 5.0 4.0 (3.8-10.6) k/uL RBC 1.95 L 1.94 L (4.30-5.90) m/uL Hgb 8.5 L 8.3 L (13.0-17.5) gm/dL Hct 25.7 L 25.1 L (39.0-53.0) % Plt Count 156 142 L (150-450) k/uL Comprehensive Metabolic Panel 10/19/24 10/20/24 Range/Units 10:38 07:51 Sodium 139 139 (137-145) mmol/L Potassium 4.7 4.5 (3.5-5.1) mmol/L Chloride 107 104 (98-107) mmol/L Carbon Dioxide 25 25 (22-30) mmol/L BUN 55 H 56 H (9-20) mg/dL Creatinine 2.26 H 1.96 H (0.66-1.25) mg/dL Glucose 96 108 H (74-99) mg/dL Calcium 8.9 9.3 (8.4-10.2) mg/dL AST 22 20 (17-59) U/L ALT 11 11 (4-49) U/L Alkaline Phosphatase 70 78 (38-126) U/L Total Protein 5.9 L 6.0 L (6.3-8.2) g/dL Albumin 3.6 3.8 (3.5-5.0) g/dL Current Medications Generic Name Dose Route Start Last Admin Trade Name Freq PRN Reason Stop Dose Admin Acetaminophen 650 mg 10/19/24 12:38 Acetaminophen Tab 325 Mg Tab PO Q6HR PRN Mild Pain or Fever > 100.5 Amlodipine Besylate 5 mg 10/20/24 09:00 10/20/24 08:28 Amlodipine 5 Mg Tab PO 5 mg DAILY SELENA Administration Apixaban 5 mg 10/20/24 09:00 Apixaban 5 Mg Tab PO BID [facility] Protocol Cyanocobalamin 1,000 mcg 10/20/24 09:00 Cyanocobalamin 500 Mcg Tab PO DAILY SELENA Folic Acid 1 mg 10/20/24 09:00 10/20/24 08:29 Folic Acid 1 Mg Tab PO 1 mg DAILY SELENA Administration Furosemide 40 mg 10/20/24 09:00 10/20/24 08:28 Furosemide 10 Mg/Ml 4 Ml Vial IV 40 mg Q12HR SELENA Administration Heparin Sodium (Porcine) 5,000 unit 10/19/24 21:00 10/20/24 08:28 Heparin Sodium,Porcine 5,000 Unit/Ml 1 Ml Vial SQ 5,000 unit Q12HR SELENA Administration Levothyroxine Sodium 50 mcg 10/20/24 07:30 10/20/24 06:28 Levothyroxine 50 Mcg Tab PO 50 mcg AC-BRKFST SELENA Administration Lorazepam 0.5 mg 10/19/24 15:06 10/19/24 22:55 Lorazepam 0.5 Mg Tab PO 0.5 mg Q4HR PRN Administration Ciwa 4 To 5 Lorazepam 1 mg 10/19/24 15:06 Lorazepam 1 Mg Tab PO Q4HR PRN Ciwa 6 To 7 Lorazepam 1 mg 10/19/24 15:06 Lorazepam 2 Mg/Ml Inj IV Q1HR PRN CIWA 10 to 15 Lorazepam 1 mg 10/19/24 15:06 Lorazepam 2 Mg/Ml Inj IV Q2HR PRN CIWA 8 or 9 Lorazepam 2 mg 10/19/24 15:06 Lorazepam 2 Mg/Ml Inj IV 10/21/24 15:06 Q10M PRN CIWA 16 or higher Metoprolol Succinate 50 mg 10/20/24 09:00 10/20/24 08:28 Metoprolol Succinate (Er) 50 Mg Tab.Er.24h PO 50 mg DAILY SELENA Administration Multivit/Ca Carb/B Cmplx/FA/Prenat 1 each 10/20/24 09:00 Folic Acid-Vit B Complex-Vit C 1 Cap PO DAILY SELENA Multivitamins 1 each 10/20/24 09:00 10/20/24 08:28 Multivitamins, Thera 1 Each Tab PO 1 each DAILY SELENA Administration Naloxone HCl 0.2 mg 10/19/24 12:38 Naloxone 0.4 Mg/Ml 1 Ml Vial IV Q2M PRN Opioid Reversal Thiamine HCl 100 mg 10/20/24 09:00 10/20/24 08:28 Thiamine 100 Mg Tab PO 100 mg DAILY SELENA Administration Intake and Output 10/19/24 10/20/24 10/20/24 22:59 06:59 14:59 Output Total 250 550 Balance -250 -550 Output: Urine 250 550 Other: Voiding Method Urinal # Bowel Movements 1 Weight 136.078 kg 145.7 kg 10/20/24 07:51 10/20/24 07:51
[2024-10-20] MEDS ORDERED: METOPROLOL TARTRATE 50 MG TAB PO SCH (09:00)
[2024-10-20] MEDS ORDERED: hydroCHLOROthiazide 25 MG TAB PO SCH (09:00)
[2024-10-20] MEDS ORDERED: amLODIPine 10 MG TAB PO SCH (09:00)
[2024-10-20] MEDS ORDERED: NON FORMULARY DRUG (Glucosamine Sulfate [Glucosamine Sulfate] 1,000 MG Tablet) PO SCH (09:00)
[2024-10-20] MEDS: CYANOCOBALAMIN 500 MCG TAB PO SCH (09:55)
[2024-10-20] MEDS: APIXABAN 5 MG TAB PO SCH (09:55)
[2024-10-20] MEDS: FOLIC ACID-VIT B COMPLEX-VIT C 1 CAP PO SCH (09:55)
--- NOTE | 2024-10-20 11:28 | P.NPCON ---
History of Present Illness - Reason for Consult acute renal failure - History of Present Illness Patient is a 69-year-old male with history of hypertension, CHF, chronic A. fib and chronic back pain. Patient is admitted to the hospital with complaints of increased lower extremity swelling and shortness of breath which had been going on for about 2-3 weeks. Patient also complained of increased weakness. Noted to have low blood pressure with systolic blood pressure in the 90s on admission. Maintained on angiotensin receptor blockers prior to admission, currently on hold. Currently being diuresed and maintained on IV Lasix. Serum creatinine was 2.2 on admission and is 1.9 today. Previous creatinine was 1.3 on 09/13/2021. Echocardiogram showed ejection fraction 45-50% Past Medical History Past Medical History: Heart Failure, Hypertension, Thyroid Disorder Additional Past Medical History / Comment(s): gout, neuropathy, drop foot, anemia, tinnitus History of Any Multi-Drug Resistant Organisms: None Reported Past Surgical History: Back Surgery Additional Past Surgical History / Comment(s): 12-10-15 C3-4,C4-5,C5-6,C67 ANT CERVIAL DISCECTOMY/FUSION WITH ALLOGRAFT AND PLATE. Past Anesthesia/Blood Transfusion Reactions: No Reported Reaction Past Psychological History: No Psychological Hx Reported Additional Psychological History / Comment(s): OCC CLAUSTROPHOBIC. Smoking Status: Never smoker Past Alcohol Use History: Daily, Heavy Additional Past Alcohol Use History / Comment(s): CHEWS TOBACCO SINCE 1983. DRINKS 6-8 BEERS DAILY.-BUT STATED HAS'NT DRANK IN A FEW DAYS BEFORE SURGURY. Past Drug Use History: None Reported - Past Family History Father Brother(s) Family Medical History: Cancer Medications and Allergies Home Medications Medication Instructions Recorded Confirmed Type Metoprolol Tartrate [Lopressor] 200 mg PO DAILY 12/07/15 10/19/24 History Cyanocobalamin (Vitamin B-12) 1,000 mcg PO DAILY 10/19/24 10/19/24 History [Vitamin B-12] Folic Acid 470mg 470 mg PO DAILY 10/19/24 10/19/24 History Glucosamine Sulfate 1,000 mg PO DAILY 10/19/24 10/19/24 History Levothyroxine Sodium [Synthroid] 50 mcg PO AC-BRKFST 10/19/24 10/19/24 History Olmesartan Medoxomil 40 mg PO DAILY 10/19/24 10/19/24 History Thiamine [Vitamin B-1] 100 mg PO DAILY 10/19/24 10/19/24 History amLODIPine [Norvasc] 10 mg PO DAILY 10/19/24 10/19/24 History hydroCHLOROthiazide [Hydrodiuril] 25 mg PO DAILY 10/19/24 10/19/24 History Allergies Allergy/AdvReac Type Severity Reaction Status Date / Time furosemide [From Lasix] AdvReac Diarrhea Verified 10/19/24 15:48 Physical Exam Vitals: Vital Signs Temp Pulse Pulse Resp BP BP Pulse Ox 10/20/24 07:00 97.4 F L 72 17 135/78 94 L 10/20/24 01:21 98.2 F 89 17 120/68 96 10/19/24 21:49 70 10/19/24 20:00 97.7 F 70 17 112/69 96 10/19/24 18:00 72 19 119/64 97 10/19/24 17:32 68 19 116/64 97 10/19/24 13:22 98.8 F 56 L 18 112/48 97 Intake and Output 10/19/24 10/20/24 10/20/24 22:59 06:59 14:59 Output Total 250 550 500 Balance -250 -550 -500 Output: Urine 250 550 500 Other: Voiding Method Urinal # Bowel Movements 1 Weight 136.078 kg 145.7 kg patient is awake, comfortable, no acute distress. Alert oriented 3 Examination of the heart S1 and S2 Examination of the lungs bilateral breath sounds are heard Abdomen is soft nontender Examination of lower extremities shows chronic skin changes with bilateral edema 2+. NET UI DEVELOPER exam grossly intact Results - Lab Results Most recent lab results Calcium 9.3 mg/dL (8.4-10.2) 10/20/24 07:51 Magnesium 2.4 mg/dL (1.6-2.3) H 10/20/24 07:51 10/20/24 07:51 10/20/24 07:51 Assessment and Plan Assessment: 1. Acute kidney injury, ATN from hypotension and cardiorenal, improving. Maintained on diuretics. UA is benign. Ultrasound shows no evidence of obstructive uropathy. Simple cyst right kidney 2. Volume overload 3. Cardiomyopathy with EF of 45-50% 4. Anemia rule out iron deficiency. 5. Hypertension with blood pressure low on initial admission 6. Lactic acidosis from hypotension, improved 7. Chronic persistent A. fib 8. EtOH abuse Plan: continue with current dose of Lasix. Okay to add SGLT2i Resume low-dose angiotensin receptor blockers in a.m. Check iron profile Repeat labs in a.m.
[2024-10-20] MEDS: DAPAGLIFLOZIN PROPANEDIOL 5 MG TABLET PO SCH (13:08)
[2024-10-20 14:19] LABS: % Iron Saturation 30.28 (15.00-50.00)
--- NOTE | 2024-10-20 16:00 | P.PN ---
Subjective Progress Note Date: 10/20/24 Hospital course: Patient is a pleasant 69-year-old male with a past medical history of hypertension, congestive heart failure unknown type, atrial fibrillation no longer on anticoagulation per recommendations of his PCP secondary to low hemoglobin, chronic back pain status post cervical discectomy and fusion, bilateral lower extremity peripheral neuropathy, and daily alcohol use/abuse reported drinking approximately a fifth of liquor daily. He presented to the emergency department with his secondary to complaints of increasing fatigue, generalized weakness, and significant lower extremity edema. Patient's reports he has been battling with lower extremity edema off and on over the past months but states over the last month this edema has progressively worsened and he can no longer even lift his legs or stand up to move secondary to severe swelling that is now went from initially only being in his ankles to now extending up into his thighs and abdomen. In addition patient reports exertional dyspnea and orthopnea. He states he has been following up with his PCP and is scheduled to undergo an echocardiogram, ultrasound of his kidneys, and an upper and lower endoscopy in the next month. He denies having any headache, lightheadedness, dizziness, chest pain, palpitations, shortness of breath at rest, cough or congestion, or any other complaints at time. He does report having a poor appetite secondary to the amount of swelling in his abdomen. Patient does report drinking a fifth of liquor daily, last drink being this morning. Upon arrival to our facility, patient underwent evaluation in the emergency department. Vital signs upon arrival showing blood pressure 97/60, heart rate 55, respiratory rate 18, temp 97.7 F, and SpO2 of 95% on room air. EKG was completed showing atrial fibrillation with a slowed ventricular response of 52 bpm. Chest x-ray negative for acute cardiopulmonary process. Labs completed and reviewed. CBC showing macrocytic anemia with hemoglobin of 8.5 and MCV of 131.6. Coagulation profile normal findings. BMP showing acute kidney injury with BUN of 55, creatinine of 2.26, and GFR of 28 (most recent lab draws completed in 2020 showing a creatinine of 1.3). Lactic acid 2.8. Magnesium 2.7. Liver enzymes normal findings. Troponin negative at less than 0.012 and proBNP 3420. TSH was elevated at 11.00 with normal free T4 of 0.99. Urinalysis negative for blood, ketones, protein, or infection. Serum alcohol level was elevated at 71. Ultrasound kidneys, ureters, and bladder showing no evidence of acute obstructive uropathy revealing a simple appearing cyst in the inferior right kidney measuring 4.2 cm. Patient was given IV Lasix 40 mg IVP x 1 dose and admitted under our services with consultation to cardiology and nephrology. Physical exam: Patient seen and fully evaluated at bedside this morning. Patient slightly frustrated expressing that he should have never came to the hospital in the first place. Patient reports difficult time with ambulation and getting to and from restroom and continued heaviness in his extremities abdomen. Vital signs reviewed and stable. General: Nontoxic, no distress and appears stated age. Obese. Derm: Skin warm and dry, normal coloration for ethnicity. Head: Atraumatic, normocephalic and symmetric. Eyes: EOM's intact, no lid lag, and anicteric sclera Mouth: no lip lesions, mucus membranes moist Cardiovascular: regular rate and rhythm with normal S1S2, systolic murmur, and cap refill < 2 seconds. Lungs: Respirations even, regular, and unlabored on room air. Lungs diminished, no rhonchi, no rales, no wheezing, and no accessory muscle usage. Abdominal: Obese taut distended abdomen, nontender to palpation, no guarding. Ext: No gross muscle atrophy, 3+ pitting BLE edema extending up into thighs and abdomen. Pt denies scrotal edema. movement and sensation intact. Patient reports severe peripheral neuropathy when ambulating. Neuro: Speech clear, face symmetrical and CN II-XII grossly intact with no noted focal neuro deficits Psych: Alert and oriented to person, place, time, and situation. Appropriate and pleasant affect. Assessment and Plan of Care: Acute exacerbation of chronic heart failure, unknown type pending echocardiogram Significant bilateral lower extremity edema extending into thighs and upwards into abdomen Hypotension upon arrival -Cardiology consulted, appreciate recommendations -Telemetry monitoring -ProBNP 3420 and troponin was negative at less than 0.012. -Daily weights and strict monitoring of I's and O's -Cardiology decreasing to Lasix 40 mg IVP every 12 hours -Liver Ultrasound showing small volume free fluid in the right upper quadrant and increased hepatic parenchymal echogenicity suggesting steatosis and/or hepatocellular disease. -Echocardiogram revealing reduced EF of 45 to 50%. -Continued close monitoring of electrolytes while diuresing. -Parameters placed on patient's home metoprolol to hold for systolic pressure less than 100 and/or heart rate less than 55. Acute kidney injury, suspect underlying chronic kidney disease. Improving with IV diuresis. Simple renal cyst of inferior right kidney -Renal ultrasound showing no evidence of acute obstructive uropathy revealing a simple appearing cyst in the inferior right kidney measuring 4.2 cm. -Urinalysis negative for protein, ketones, blood, or infection. -Consult placed to nephrology, appreciate recommendations. -Patient requiring IV diuresis at this time, will hold other nephrotoxic medications including olmesartan 40 mg daily. -Order placed for bladder scanning to monitor for postvoid residuals and/or retention. -Continue strict I's and O's. Documented urinary output of 800 cc overnight. Alcohol intoxication in active alcoholic, likely impending withdraw Lactic acidosis, resolved -Serum alcohol level elevated at 71 at time of arrival. Patient reports drinking a fifth of liquor daily. Denies history of hospitalization for withdrawal but states daily drinking for many many years. -Continue monitoring of CIWA scores and patient to be medicated with Ativan 0.5 mg every 4 hours as needed for CIWA score of 4-5, Ativan 1 mg every 4 hours for CIWA score of 6-7, Ativan 2 mg every 3 hours CIWA score of 8-9, and Ativan 2 mg every 2 hours forr CIWA score of 10 or greater. -Thiamine 100 mg daily, and Multivitamin daily, and Folate 1 mg daily -Seizure and fall precautions in place. -Continued close monitoring of electrolytes and replace as needed. -Telemetry monitoring. Macrocytic anemia -Unclear cause possibly secondary to underlying undiagnosed cirrhosis versus CKD, versus GI bleed. -Continue vitamin B12 1000 mcg daily. -Patient denies melena or hematochezia and denies any episodes of hematemesis. Reports his PCP wanted him to go for an upper and lower GI to rule out GI bleed and took him off of his blood thinner. -Iron 86, TIBC 284, iron percentage saturation 30.28, transferrin 203. -Patient to continue thiamine 100 mg daily, multivitamin daily, and folic acid 1 mg daily. -Continue close monitoring of hemoglobin levels with repeat morning CBC. Chronic atrial fibrillation, currently slowed ventricular rate -Cardiology evaluated and secondary to elevated [id number] score, patient was started on Eliquis 5 mg twice daily. Hypertension, hypotension upon arrival -Metoprolol discontinued by cardiology and patient started on amlodipine 5 mg daily lower dose metoprolol 50 mg daily. Data and imaging reviewed: -Liver Ultrasound showing small volume free fluid in the right upper quadrant and increased hepatic parenchymal echogenicity suggesting steatosis and/or hepatocellular disease. -Echocardiogram revealing reduced EF of 45 to 50%. -Iron 86, TIBC 284, iron percentage saturation 30.28, transferrin 203. -Morning labs reviewed. CBC showing stable bicytopenia with hemoglobin of 8.3 and platelet count of 142. BMP showing slight improvement of renal function with BUN of 56, creatinine of 1.96, GFR of 34. Blood glucose 108. Magnesium 2.4. -Vital signs reviewed. Blood pressure 135/78, heart rate 72, respiratory rate 17, temp 97.4 F, and SpO2 of 94% on room air. CODE STATUS: Full code DVT prophylaxis: Eliquis Anticipated discharge date: Pending clinical course Anticipated discharge place: Pending clinical course Patient was seen independently by Nurse Practitioner. This document was prepared using [employer] dictation software. Please allow for errors in precision jig grinder while rare they do occur. Cosme Lopez NP rendered care for this patient independently, reviewed the findings and plan as documented in the note above and agree with plan. I did not physically speak with or examine the patient on this date. Objective - Vital Signs Vital signs: Vital Signs Temp 97.4 F L 10/20/24 07:00 Pulse 72 10/20/24 07:00 Resp 17 10/20/24 07:00 BP 135/78 10/20/24 07:00 Pulse Ox 94 L 10/20/24 07:00 FiO2 Intake & Output 10/19/24 10/20/24 10/20/24 18:59 06:59 18:59 Output Total 800 Balance -800 Weight 136.078 kg 145.7 kg Output: Urine 800 Other: Voiding Method Urinal # Bowel Movements 1 - Labs CBC & Chem 7: 10/20/24 07:51 10/20/24 07:51 Labs: Abnormal Lab Results - Last 24 Hours (Table) 10/19/24 10/19/24 10/19/24 Range/Units 10:38 10:38 10:38 RBC 1.95 L (4.30-5.90) m/uL Hgb 8.5 L (13.0-17.5) gm/dL Hct 25.7 L (39.0-53.0) % MCV 131.6 H (80.0-100.0) fL MCH 43.4 H (25.0-35.0) pg Plt Count (150-450) k/uL Lymphocytes # 0.8 L (1.0-4.8) k/uL Macrocytosis Marked A BUN 55 H (9-20) mg/dL Creatinine 2.26 H (0.66-1.25) mg/dL Glucose (74-99) mg/dL Plasma Lactic Acid Parminder 2.8 H* (0.7-2.0) mmol/L Magnesium 2.7 H (1.6-2.3) mg/dL Total Bilirubin (0.2-1.3) mg/dL Total Protein 5.9 L (6.3-8.2) g/dL TSH 11.000 H (0.465-4.680) mIU/L Free T3 pg/mL 2.00 L (2.30-4.20) pg/mL Ur Leukocyte Esterase (Negative) Hyaline Casts (0-2) /lpf Urine Mucus (None) /hpf 10/19/24 10/19/24 10/20/24 Range/Units 12:59 14:09 07:51 RBC 1.94 L (4.30-5.90) m/uL Hgb 8.3 L (13.0-17.5) gm/dL Hct 25.1 L (39.0-53.0) % MCV 129.5 H (80.0-100.0) fL MCH 43.0 H (25.0-35.0) pg Plt Count 142 L (150-450) k/uL Lymphocytes # 0.5 L (1.0-4.8) k/uL Macrocytosis Marked A BUN (9-20) mg/dL Creatinine (0.66-1.25) mg/dL Glucose (74-99) mg/dL Plasma Lactic Acid Parminder 2.9 H* (0.7-2.0) mmol/L Magnesium (1.6-2.3) mg/dL Total Bilirubin (0.2-1.3) mg/dL Total Protein (6.3-8.2) g/dL TSH (0.465-4.680) mIU/L Free T3 pg/mL (2.30-4.20) pg/mL Ur Leukocyte Esterase Trace H (Negative) Hyaline Casts 10 H (0-2) /lpf Urine Mucus Rare H (None) /hpf 10/20/24 Range/Units 07:51 RBC (4.30-5.90) m/uL Hgb (13.0-17.5) gm/dL Hct (39.0-53.0) % MCV (80.0-100.0) fL MCH (25.0-35.0) pg Plt Count (150-450) k/uL Lymphocytes # (1.0-4.8) k/uL Macrocytosis BUN 56 H (9-20) mg/dL Creatinine 1.96 H (0.66-1.25) mg/dL Glucose 108 H (74-99) mg/dL Plasma Lactic Acid Parminder (0.7-2.0) mmol/L Magnesium 2.4 H (1.6-2.3) mg/dL Total Bilirubin 2.1 H (0.2-1.3) mg/dL Total Protein 6.0 L (6.3-8.2) g/dL TSH (0.465-4.680) mIU/L Free T3 pg/mL (2.30-4.20) pg/mL Ur Leukocyte Esterase (Negative) Hyaline Casts (0-2) /lpf Urine Mucus (None) /hpf
[2024-10-21 07:48] LABS: Chol/HDL Ratio 1.82 Ratio; LDL Cholesterol,Calculated 41.3 mg/dL (0.0-131.0); VLDL Calculation 16.26 mg/dL (5.00-40.00)
[2024-10-21 09:01] LABS: HCT 24.8 % (39.6-50.0); HGB 8.2 g/dL (13.0-17.0); MCH 44.1 pg (27.0-32.0); MCHC 33.1 g/dL (32.0-37.0); MCV 133.3 FL (80.0-97.0); Mean Platelet Volume 10.6 FL (9.5-12.2); NRBC Per 100 WBC 0 X 10*3/uL (0.00-0.01); Platelet Count 128 X 10*3/uL (140-440); RBC 1.86 X 10*6/uL (4.40-5.60); RDW 14.4 % (11.5-14.5); WBC 4.56 X 10*3/uL (4.50-10.00)
[2024-10-21 09:22] LABS: ALT 8 U/L (10-49); AST 17 U/L (14-35); Albumin 4.1 g/dL (3.8-4.9); Albumin/Globulin Ratio 1.95 Ratio (1.60-3.17); Alkaline Phosphatase 80 U/L (41-126); Blood Urea Nitrogen 47.4 mg/dL (9.0-27.0); Calcium 9.8 mg/dL (8.7-10.3); Carbon Dioxide 25.8 mmol/L (21.6-31.8); Chloride 101 mmol/L (96-109); Globulin 2.1 g/dL (1.6-3.3); Glucose 98 mg/dL (70-110); Magnesium 2.2 mg/dL (1.5-2.4); Potassium 4.4 mmol/L (3.5-5.5); Sodium 142 mmol/L (135-145); Total Bilirubin 1.8 mg/dL (0.3-1.2); Total Protein 6.2 g/dL (6.2-8.2)
--- NOTE | 2024-10-21 09:42 | P.PN ---
Subjective Progress Note Date: 10/21/24 HISTORY OF PRESENTING ILLNESS 69-year-old with past medical history of hypertension, daily alcohol use, fifth of liquor every day, presented to the hospital because of increased fatigue, generalized weakness, increased lower extremity edema. Patient is a poor historian. He is not able to tell me if he has prior history of congestive heart failure or atrial fibrillation. On admission it is noticed that he was not atrial fibrillation with bradycardia with heart rate in 52 bpm. He denies any symptoms of chest pain chest pressure. He does endorse symptoms of orthopnea and paroxysmal nocturnal dyspnea. He also reports that he gets short of breath with minimal exertion, NYHA class III symptoms. Patient was intoxicated at the time of admission, alcohol level of 71 on admission. Cardiac testing NT-proBNP 2400, TSH 11, creatinine 1.9 10/21 Patient has been seen and examined. Patient is sitting up in a chair. He states his breathing is better now. He denies having any chest pain. Patient states that the swelling in his hands is better but he still has lower extremity edema. He is complaining that he was not able to sleep as he was up every 15 minutes to the bathroom. Blood pressure 108/71, heart rate 76, pulse ox 96% on room air. Repeat blood work reveals hemoglobin of 8.2 potassium 4.4, BUN 47 creatinine 2. Cholesterol 128, triglycerides 81, LDL 41. Hemoglobin A1c 4.6. Troponin negative x 2 total. Nephrology is on consult. Yesterday patient was started on Eliquis Echocardiogram reveals EF 45 to 50%, very technically difficult study. No significant aortic stenosis. Valvular function cannot be assessed with good sensitivity. PHYSICAL EXAMINATION Vital signs reviewed. Head: Normocephalic. Eyes: Sclerae nonicteric. Neck: Brisk carotid upstroke, no jugular venous distention. Lungs: Clear to auscultation. Heart: Regular rate and rhythm, S1-S2, no S3, no murmur or rub. Abdomen: Soft nontender, positive bowel sounds. Extremities: Bilateral lower extremity edema, intact distal pulses. Neuro: Alert, oritented, no focal deficits. Detailed neuro exam was not performed. ASSESSMENT Acute CHF exacerbation, HFrEF, EF 40%, NYHA class III, orthopnea Bilateral lower extremity edema Persistent atrial fibrillation, rate controlled. Bradycardic on admission. [id number] score 3 HOWIE CKD Daily heavy alcohol use. Fifth of alcohol every day Macrocytic anemia Suspect sleep apnea Obesity Anemia possibly due to chronic kidney disease, other etiologies not ruled out PLAN Hold Eliquis due to anemia of unclear etiology, and alcohol abuse. Start B12 folate supplementation for anemia. Request primary team to workup his anemia Lasix 40 mg IV twice daily, metoprolol succinate 50 mg daily, amlodipine 5 mg daily If kidney function improves, consider adding SGLT2/ARB and MRA Obtain HbA1c and lipid panel, troponin Considering his risk factors and mild cardiomyopathy, recommend ischemic evaluation with a stress test once optimized from congestive heart failure standpoint. No plan for stress test today Outpatient workup for alcoholic liver disease Obtain echocardiogram Alcohol abstinence recommended. Nurse practitioner note has been reviewed, I agree with documented findings and plan of care. Patient was seen and examined. Objective - Vital Signs Vital signs: Vital Signs Temp 98.0 F 10/21/24 02:00 Pulse 76 10/21/24 02:00 Resp 18 10/21/24 02:00 BP 108/71 10/21/24 02:00 Pulse Ox 96 10/21/24 02:00 FiO2 Intake & Output 10/20/24 10/21/24 10/21/24 18:59 06:59 18:59 Output Total 1100 2300 Balance -1100 -2300 Weight 141.7 kg Output: Urine 1100 2300 Other: Voiding Method Toilet - Labs CBC & Chem 7: 10/21/24 05:00 10/21/24 05:00 Labs: Abnormal Lab Results - Last 24 Hours (Table) 10/19/24 10/20/24 10/20/24 Range/Units 10:38 07:51 07:51 RBC 1.94 L (4.30-5.90) m/uL Hgb 8.3 L (13.0-17.5) gm/dL Hct 25.1 L (39.0-53.0) % MCV 129.5 H (80.0-100.0) fL MCH 43.0 H (25.0-35.0) pg Plt Count 142 L (150-450) k/uL Lymphocytes # 0.5 L (1.0-4.8) k/uL Macrocytosis Marked A BUN 56 H (9-20) mg/dL Creatinine 1.96 H (0.66-1.25) mg/dL Glucose 108 H (74-99) mg/dL Magnesium 2.4 H (1.6-2.3) mg/dL Transferrin 203.0 L (204.0-354.0) mg/dL Total Bilirubin 2.1 H (0.2-1.3) mg/dL Total Protein 6.0 L (6.3-8.2) g/dL
--- NOTE | 2024-10-21 11:26 | P.PN ---
Subjective Progress Note Date: 10/21/24 Hospital course: Patient is a pleasant 69-year-old male with a past medical history of hypertension, congestive heart failure unknown type, atrial fibrillation no longer on anticoagulation per recommendations of his PCP secondary to low hemoglobin, chronic back pain status post cervical discectomy and fusion, bilateral lower extremity peripheral neuropathy, and daily alcohol use/abuse reported drinking approximately a fifth of liquor daily. He presented to the emergency department with his secondary to complaints of increasing fatigue, generalized weakness, and significant lower extremity edema. Patient's reports he has been battling with lower extremity edema off and on over the past months but states over the last month this edema has progressively worsened and he can no longer even lift his legs or stand up to move secondary to severe swelling that is now went from initially only being in his ankles to now extending up into his thighs and abdomen. In addition patient reports exertional dyspnea and orthopnea. He states he has been following up with his PCP and is scheduled to undergo an echocardiogram, ultrasound of his kidneys, and an upper and lower endoscopy in the next month. He denies having any headache, lightheadedness, dizziness, chest pain, palpitations, shortness of breath at rest, cough or congestion, or any other complaints at time. He does report having a poor appetite secondary to the amount of swelling in his abdomen. Patient does report drinking a fifth of liquor daily, last drink being this morning. Upon arrival to our facility, patient underwent evaluation in the emergency department. Vital signs upon arrival showing blood pressure 97/60, heart rate 55, respiratory rate 18, temp 97.7 F, and SpO2 of 95% on room air. EKG was completed showing atrial fibrillation with a slowed ventricular response of 52 bpm. Chest x-ray negative for acute cardiopulmonary process. Labs completed and reviewed. CBC showing macrocytic anemia with hemoglobin of 8.5 and MCV of 131.6. Coagulation profile normal findings. BMP showing acute kidney injury with BUN of 55, creatinine of 2.26, and GFR of 28 (most recent lab draws completed in 2020 showing a creatinine of 1.3). Lactic acid 2.8. Magnesium 2.7. Liver enzymes normal findings. Troponin negative at less than 0.012 and proBNP 3420. TSH was elevated at 11.00 with normal free T4 of 0.99. Urinalysis negative for blood, ketones, protein, or infection. Serum alcohol level was elevated at 71. Ultrasound kidneys, ureters, and bladder showing no evidence of acute obstructive uropathy revealing a simple appearing cyst in the inferior right kidney measuring 4.2 cm. Patient was given IV Lasix 40 mg IVP x 1 dose and admitted under our services with consultation to cardiology and nephrology. Physical exam: Patient seen and fully evaluated at bedside this morning. Patient sitting up in chair at bedside this morning. He reports noticing maybe a small amount of decrease in his swelling in his legs. Legs remain wrapped with Keegan dressing for compression. Patient having any other complaints at this time. He reports continued fatigue and heaviness with extremities. Vital signs reviewed and stable. General: Nontoxic, no distress and appears stated age. Obese. Derm: Skin warm and dry, normal coloration for ethnicity. Head: Atraumatic, normocephalic and symmetric. Eyes: EOM's intact, no lid lag, and anicteric sclera Mouth: no lip lesions, mucus membranes moist Cardiovascular: regular rate and rhythm with normal S1S2, systolic murmur, and cap refill < 2 seconds. Lungs: Respirations even, regular, and unlabored on room air. Lungs diminished, no rhonchi, no rales, no wheezing, and no accessory muscle usage. Abdominal: Obese taut distended abdomen, nontender to palpation, no guarding. Ext: No gross muscle atrophy, 3+ pitting BLE edema extending up into thighs and abdomen. Pt denies scrotal edema. movement and sensation intact. Patient reports severe peripheral neuropathy when ambulating. Neuro: Speech clear, face symmetrical and CN II-XII grossly intact with no noted focal neuro deficits Psych: Alert and oriented to person, place, time, and situation. Appropriate and pleasant affect. Assessment and Plan of Care: Acute exacerbation of chronic heart failure, unknown type pending echocardiogram Significant bilateral lower extremity edema extending into thighs and upwards into abdomen Hypotension upon arrival -Cardiology consulted, appreciate recommendations -Telemetry monitoring -ProBNP 3420 and troponin was negative at less than 0.012. -Daily weights and strict monitoring of I's and O's -Cardiology decreasing to Lasix 40 mg IVP every 12 hours -Liver Ultrasound showing small volume free fluid in the right upper quadrant and increased hepatic parenchymal echogenicity suggesting steatosis and/or hepatocellular disease. -Echocardiogram revealing reduced EF of 45 to 50%. -Continued close monitoring of electrolytes while diuresing. -Parameters placed on patient's home metoprolol to hold for systolic pressure less than 100 and/or heart rate less than 55. Acute kidney injury, suspect underlying chronic kidney disease. Improving with IV diuresis. Simple renal cyst of inferior right kidney -Renal ultrasound showing no evidence of acute obstructive uropathy revealing a simple appearing cyst in the inferior right kidney measuring 4.2 cm. -Urinalysis negative for protein, ketones, blood, or infection. -Consult placed to nephrology, appreciate recommendations. -Patient requiring IV diuresis at this time, will hold other nephrotoxic medications including olmesartan 40 mg daily. -Order placed for bladder scanning to monitor for postvoid residuals and/or retention. -Continue strict I's and O's. Documented urinary output of 800 cc overnight. Alcohol intoxication in active alcoholic, likely impending withdraw Lactic acidosis, resolved -Serum alcohol level elevated at 71 at time of arrival. Patient reports drinking a fifth of liquor daily. Denies history of hospitalization for withdrawal but states daily drinking for many many years. -Continue monitoring of CIWA scores and patient to be medicated with Ativan 0.5 mg every 4 hours as needed for CIWA score of 4-5, Ativan 1 mg every 4 hours for CIWA score of 6-7, Ativan 2 mg every 3 hours CIWA score of 8-9, and Ativan 2 mg every 2 hours forr CIWA score of 10 or greater. -Thiamine 100 mg daily, and Multivitamin daily, and Folate 1 mg daily -Seizure and fall precautions in place. -Continued close monitoring of electrolytes and replace as needed. -Telemetry monitoring. Macrocytic anemia -Unclear cause possibly secondary to underlying undiagnosed cirrhosis versus CKD, versus GI bleed. -Continue vitamin B12 1000 mcg daily. -Patient denies melena or hematochezia and denies any episodes of hematemesis. Reports his PCP wanted him to go for an upper and lower GI to rule out GI bleed and took him off of his blood thinner. -Iron 86, TIBC 284, iron percentage saturation 30.28, transferrin 203. -Patient to continue thiamine 100 mg daily, multivitamin daily, and folic acid 1 mg daily. -Continue close monitoring of hemoglobin levels with repeat morning CBC. Chronic atrial fibrillation, currently slowed ventricular rate -Cardiology evaluated and secondary to elevated [id number] score, patient was started on Eliquis 5 mg twice daily. Hypertension, hypotension upon arrival -Metoprolol discontinued by cardiology and patient started on amlodipine 5 mg daily lower dose metoprolol 50 mg daily. Data and imaging reviewed: -Morning labs reviewed. CBC showing stable bicytopenia with hemoglobin of 8.2 and platelet count of 128. BMP showing an anion gap of 15.20 and continued elevation of renal function with BUN of 47.4, creatinine of 2.0, and GFR of 35. Blood glucose 98. Magnesium 2.2. Liver profile showing elevated but improving with total bili of 1.8. Lipid profile was unremarkable with exception of high HDL of 70.40 -Vital signs reviewed. Blood pressure 130/74, heart rate 84, respiratory rate 18, temp 99.0 F, and SpO2 of 98% on room air. CODE STATUS: Full code DVT prophylaxis: Eliquis Anticipated discharge date: Pending clinical course Anticipated discharge place: Pending clinical course Patient was seen independently by Nurse Practitioner. This document was prepared using [employer] dictation software. Please allow for errors in academic hospitalist while rare they do occur. Cosme Lopez NP rendered care for this patient independently, reviewed the findings and plan as documented in the note above and agree with plan. I did not physically speak with or examine the patient on this date. Objective - Vital Signs Vital signs: Vital Signs Temp 99 F 10/21/24 07:00 Pulse 84 10/21/24 07:00 Resp 18 10/21/24 07:00 BP 130/74 10/21/24 07:00 Pulse Ox 98 10/21/24 07:00 FiO2 Intake & Output 10/20/24 10/21/24 10/21/24 18:59 06:59 18:59 Output Total 1100 2300 Balance -1100 -2300 Weight 141.7 kg Output: Urine 1100 2300 Other: Voiding Method Toilet - Labs CBC & Chem 7: 10/21/24 05:00 10/21/24 05:00 Labs: Abnormal Lab Results - Last 24 Hours (Table) 10/19/24 10/20/24 10/20/24 Range/Units 10:38 07:51 07:51 RBC 1.94 L (4.30-5.90) m/uL Hgb 8.3 L (13.0-17.5) gm/dL Hct 25.1 L (39.0-53.0) % MCV 129.5 H (80.0-100.0) fL MCH 43.0 H (25.0-35.0) pg Plt Count 142 L (150-450) k/uL Lymphocytes # 0.5 L (1.0-4.8) k/uL Macrocytosis Marked A BUN 56 H (9-20) mg/dL Creatinine 1.96 H (0.66-1.25) mg/dL Glucose 108 H (74-99) mg/dL Magnesium 2.4 H (1.6-2.3) mg/dL Transferrin 203.0 L (204.0-354.0) mg/dL Total Bilirubin 2.1 H (0.2-1.3) mg/dL Total Protein 6.0 L (6.3-8.2) g/dL HDL Cholesterol (40.00-60.00) mg/dL 10/20/ Range/Units 11:01 RBC (4.30-5.90) m/uL Hgb (13.0-17.5) gm/dL Hct (39.0-53.0) % MCV (80.0-100.0) fL MCH (25.0-35.0) pg Plt Count (150-450) k/uL Lymphocytes # (1.0-4.8) k/uL Macrocytosis BUN (9-20) mg/dL Creatinine (0.66-1.25) mg/dL Glucose (74-99) mg/dL Magnesium (1.6-2.3) mg/dL Transferrin (204.0-354.0) mg/dL Total Bilirubin (0.2-1.3) mg/dL Total Protein (6.3-8.2) g/dL HDL Cholesterol 70.40 H (40.00-60.00) mg/dL
--- NOTE | 2024-10-21 12:07 | P.PN ---
Subjective patient is seen for follow-up for acute kidney injury and volume overload. Currently being diuresed. Serum creatinine stable at 2.0. Overall feeling better. Legs remains significantly edematous. Shortness of breath has improved. Objective - Vital Signs Vital signs: Vital Signs Temp 99 F 10/21/24 07:00 Pulse 84 10/21/24 07:00 Resp 18 10/21/24 07:00 BP 130/74 10/21/24 07:00 Pulse Ox 98 10/21/24 07:00 FiO2 Intake & Output 10/20/24 10/21/24 10/21/24 18:59 06:59 18:59 Intake Total 236 Output Total 1100 2300 550 Balance -1100 -2300 -314 Weight 141.7 kg Intake: Oral 236 Output: Urine 1100 2300 550 Other: Voiding Method Toilet - Exam patient is awake, comfortable, no acute distress. Alert oriented 3 Examination of the heart S1 and S2 Examination of the lungs bilateral breath sounds are heard Abdomen is soft nontender Examination of lower extremities shows chronic skin changes with bilateral edema 2+. COOK VACUUM KETTLE exam grossly intact - Labs CBC & Chem 7: 10/21/24 05:00 10/21/24 05:00 Labs: Abnormal Lab Results - Last 24 Hours (Table) 10/19/24 10/20/24 10/21/24 Range/Units 10:38 11:01 05:00 RBC 1.86 L (4.40-5.60) X 10*6/uL Hgb 8.2 L (13.0-17.0) g/dL Hct 24.8 L (39.6-50.0) % MCV 133.3 H (80.0-97.0) FL MCH 44.1 H (27.0-32.0) pg Plt Count 128 L (140-440) X 10*3/uL Anion Gap (4.00-12.00) mmol/L BUN (9.0-27.0) mg/dL Creatinine (0.6-1.5) mg/dL Est GFR (CKD-EPI) (>=60) BUN/Creatinine Ratio (12.00-20.00) Ratio Transferrin 203.0 L (204.0-354.0) mg/dL Total Bilirubin (0.3-1.2) mg/dL ALT (10-49) U/L HDL Cholesterol 70.40 H (40.00-60.00) mg/dL 10/21/24 Range/Units 05:00 RBC (4.40-5.60) X 10*6/uL Hgb (13.0-17.0) g/dL Hct (39.6-50.0) % MCV (80.0-97.0) FL MCH (27.0-32.0) pg Plt Count (140-440) X 10*3/uL Anion Gap 15.20 H (4.00-12.00) mmol/L BUN 47.4 H (9.0-27.0) mg/dL Creatinine 2.0 H (0.6-1.5) mg/dL Est GFR (CKD-EPI) 35 L (>=60) BUN/Creatinine Ratio 23.70 H (12.00-20.00) Ratio Transferrin (204.0-354.0) mg/dL Total Bilirubin 1.8 H (0.3-1.2) mg/dL ALT 8 L (10-49) U/L HDL Cholesterol (40.00-60.00) mg/dL Assessment and Plan Assessment: 1. Acute kidney injury, ATN from hypotension and cardiorenal. Maintained on diuretics. UA is benign. Ultrasound shows no evidence of obstructive uropathy. Simple cyst right kidney 2. Volume overload 3. Cardiomyopathy with EF of 45-50% 4. Anemia rule out iron deficiency. 5. Hypertension with blood pressure low on initial admission 6. Lactic acidosis from hypotension, improved 7. Chronic persistent A. fib 8. EtOH abuse Plan: continue with current dose of Lasix. Okay to add SGLT2i hold low-dose angiotensin receptor blockers as blood pressure remains low Repeat labs in a.m.
[2024-10-22] MEDS: ACETAMINOPHEN TAB 325 MG TAB PO PRN ×2 (05:41→21:25)
[2024-10-22] MEDS ORDERED: HYDROcodone/APAP 5-325MG 1 EACH TAB PO PRN (08:19)
[2024-10-22] MEDS: HYDROcodone/APAP 10-325MG 1 EACH TAB PO PRN (08:36)
[2024-10-22 08:45] LABS: HGB 7.8 g/dL (13.0-17.0); MCH 42.6 pg (27.0-32.0); MCHC 32.5 g/dL (32.0-37.0); MCV 131.1 FL (80.0-97.0); Mean Platelet Volume 10.3 FL (9.5-12.2); NRBC Per 100 WBC 0 X 10*3/uL (0.00-0.01); Platelet Count 119 X 10*3/uL (140-440); RBC 1.83 X 10*6/uL (4.40-5.60); RDW 14.3 % (11.5-14.5); WBC 4.21 X 10*3/uL (4.50-10.00)
[2024-10-22 08:58] LABS: BUN/Creat Ratio 23.06 Ratio (12.00-20.00); Blood Urea Nitrogen 41.5 mg/dL (9.0-27.0); Carbon Dioxide 27.1 mmol/L (21.6-31.8); Chloride 98 mmol/L (96-109); Glucose 100 mg/dL (70-110); Magnesium 1.8 mg/dL (1.5-2.4); Potassium 3.8 mmol/L (3.5-5.5); Sodium 140 mmol/L (135-145)
[2024-10-22 08:59] LABS: ALT 7 U/L (10-49); AST 18 U/L (14-35); Albumin 3.8 g/dL (3.8-4.9); Albumin/Globulin Ratio 1.81 Ratio (1.60-3.17); Alkaline Phosphatase 71 U/L (41-126); Calcium 9.7 mg/dL (8.7-10.3); Globulin 2.1 g/dL (1.6-3.3); Total Bilirubin 1.7 mg/dL (0.3-1.2); Total Protein 5.9 g/dL (6.2-8.2)
--- NOTE | 2024-10-22 09:25 | P.PN ---
Subjective Progress Note Date: 10/22/24 HISTORY OF PRESENTING ILLNESS 69-year-old with past medical history of hypertension, daily alcohol use, fifth of liquor every day, presented to the hospital because of increased fatigue, generalized weakness, increased lower extremity edema. Patient is a poor historian. He is not able to tell me if he has prior history of congestive heart failure or atrial fibrillation. On admission it is noticed that he was not atrial fibrillation with bradycardia with heart rate in 52 bpm. He denies any symptoms of chest pain chest pressure. He does endorse symptoms of orthopnea and paroxysmal nocturnal dyspnea. He also reports that he gets short of breath with minimal exertion, NYHA class III symptoms. Patient was intoxicated at the time of admission, alcohol level of 71 on admission. Cardiac testing NT-proBNP 2400, TSH 11, creatinine 1.9 10/21 Patient has been seen and examined. Patient is sitting up in a chair. He states his breathing is better now. He denies having any chest pain. Patient states that the swelling in his hands is better but he still has lower extremity edema. He is complaining that he was not able to sleep as he was up every 15 minutes to the bathroom. Blood pressure 108/71, heart rate 76, pulse ox 96% on room air. Repeat blood work reveals hemoglobin of 8.2 potassium 4.4, BUN 47 creatinine 2. Cholesterol 128, triglycerides 81, LDL 41. Hemoglobin A1c 4.6. Troponin negative x 2 total. Nephrology is on consult. Yesterday patient was started on Eliquis Echocardiogram reveals EF 45 to 50%, very technically difficult study. No significant aortic stenosis. Valvular function cannot be assessed with good sensitivity. 10/22/24 Patient is seen and examined. He is sitting in recliner and is at bedside. Blood pressure 105/63, heart rate 83, pulse ox 95% on room air. He has been maintained on IV Lasix 40 mg every 12 hours. He has had a weight loss of 6 kg and negative fluid balance. Patient is complaining of being uncomfortable as he has a sore hip and his standing is unsteady. He is requesting a different recliner which nursing will need to address. His breathing is okay and better from admission. His lower extremity edema is better but still present. Regarding anemia, patient was advised by Dr. Arelis Peraza to have endoscopy done as an outpatient which has not been pursued. Yesterday, we discontinued anticoagulation due to anemia. Suggest that anemia workup be initiated while in the hospital. Repeat blood work reveals sodium 140, potassium 3.8, BUN 41 creatinine 1.8. Patient has been started on Farxiga 5 mg daily by nephrology. PHYSICAL EXAMINATION Vital signs reviewed. Head: Normocephalic. Eyes: Sclerae nonicteric. Neck: Brisk carotid upstroke, no jugular venous distention. Lungs: Clear to auscultation. Heart: Regular rate and rhythm, S1-S2, no S3, no murmur or rub. Abdomen: Soft nontender, positive bowel sounds. Extremities: Bilateral lower extremity edema, intact distal pulses. Neuro: Alert, oritented, no focal deficits. Detailed neuro exam was not performed. ASSESSMENT Acute CHF exacerbation, HFrEF, EF 40%, NYHA class III, orthopnea Bilateral lower extremity edema Persistent atrial fibrillation, rate controlled. Bradycardic on admission. [id number] score 3 HOWIE CKD Daily heavy alcohol use. Fifth of alcohol every day Macrocytic anemia Suspect sleep apnea Obesity Anemia possibly due to chronic kidney disease, other etiologies not ruled out PLAN Continue to hold Eliquis due to anemia of unclear etiology, and alcohol abuse. Request primary team to workup his anemia Continue Lasix 40 mg IV twice daily another 24 hours Monitor LEVI, daily weights, electrolytes and renal function Continue metoprolol succinate 50 mg daily, Farxiga 5 mg daily No plan for stress test. Most likely obtain ischemic workup as an outpatient Outpatient workup for alcoholic liver disease Alcohol abstinence recommended. Nurse practitioner note has been reviewed, I agree with documented findings and plan of care. Patient was seen and examined. Objective - Vital Signs Vital signs: Vital Signs Temp 98.6 F 10/22/24 01:38 Pulse 83 10/22/24 01:38 Resp 16 10/22/24 01:38 BP 105/63 10/22/24 01:38 Pulse Ox 95 10/22/24 01:38 FiO2 Intake & Output 10/21/24 10/22/24 10/22/24 18:59 06:59 18:59 Intake Total 354 Output Total 2049 1099 Balance -1695 -1099 Weight 139 kg Intake: Oral 354 Output: Urine 2049 1099 Other: Voiding Method Toilet Toilet # Voids 1 # Bowel Movements 2 - Labs CBC & Chem 7: 10/22/24 05:17 10/22/24 05:17 Labs: Abnormal Lab Results - Last 24 Hours (Table) 10/20/24 10/21/24 10/21/24 Range/Units 11:01 05:00 05:00 RBC 1.86 L (4.40-5.60) X 10*6/uL Hgb 8.2 L (13.0-17.0) g/dL Hct 24.8 L (39.6-50.0) % MCV 133.3 H (80.0-97.0) FL MCH 44.1 H (27.0-32.0) pg Plt Count 128 L (140-440) X 10*3/uL Anion Gap 15.20 H (4.00-12.00) mmol/L BUN 47.4 H (9.0-27.0) mg/dL Creatinine 2.0 H (0.6-1.5) mg/dL Est GFR (CKD-EPI) 35 L (>=60) BUN/Creatinine Ratio 23.70 H (12.00-20.00) Ratio Total Bilirubin 1.8 H (0.3-1.2) mg/dL ALT 8 L (10-49) U/L HDL Cholesterol 70.40 H (40.00-60.00) mg/dL
[2024-10-22] MEDS: HYDROmorphone 1 MG/ML 1 ML SYRINGE IVP PRN (10:54)
--- NOTE | 2024-10-22 12:06 | P.PN ---
Subjective patient is seen for follow-up for acute kidney injury and volume overload. Currently being diuresed. Serum creatinine decreased to 1.8. Overall feeling better. Legs remains significantly edematous. Shortness of breath has improved. Objective - Vital Signs Vital signs: Vital Signs Temp 98.0 F 10/22/24 07:53 Pulse 89 10/22/24 07:53 Resp 18 10/22/24 07:53 BP 114/63 10/22/24 07:53 Pulse Ox 97 10/22/24 07:53 FiO2 Intake & Output 10/21/24 10/22/24 10/22/24 18:59 06:59 18:59 Intake Total 354 0 Output Total 2049 1099 Balance -1695 -1099 0 Weight 139 kg Intake: Oral 354 0 Output: Urine 2049 1099 Other: Voiding Method Toilet Toilet # Voids 1 # Bowel Movements 2 - Exam patient is awake, comfortable, no acute distress. Alert oriented 3 Examination of the heart S1 and S2 Examination of the lungs bilateral breath sounds are heard Abdomen is soft nontender Examination of lower extremities shows chronic skin changes with bilateral edema 2+. DIRECTOR OF DEVELOPMENT exam grossly intact - Labs CBC & Chem 7: 10/22/24 05:17 10/22/24 05:17 Labs: Abnormal Lab Results - Last 24 Hours (Table) 10/22/24 10/22/24 Range/Units 05:17 05:17 WBC 4.21 L (4.50-10.00) X 10*3/uL RBC 1.83 L (4.40-5.60) X 10*6/uL Hgb 7.8 L (13.0-17.0) g/dL Hct 24.0 L (39.6-50.0) % MCV 131.1 H (80.0-97.0) FL MCH 42.6 H (27.0-32.0) pg Plt Count 119 L (140-440) X 10*3/uL Anion Gap 14.90 H (4.00-12.00) mmol/L BUN 41.5 H (9.0-27.0) mg/dL Creatinine 1.8 H (0.6-1.5) mg/dL Est GFR (CKD-EPI) 40 L (>=60) BUN/Creatinine Ratio 23.06 H (12.00-20.00) Ratio Total Bilirubin 1.7 H (0.3-1.2) mg/dL ALT 7 L (10-49) U/L Total Protein 5.9 L (6.2-8.2) g/dL Assessment and Plan Assessment: 1. Acute kidney injury, ATN from hypotension and cardiorenal. Maintained on diuretics. UA is benign. Ultrasound shows no evidence of obstructive uropathy. Simple cyst right kidney 2. Volume overload 3. Cardiomyopathy with EF of 45-50% 4. Anemia rule out iron deficiency. 5. Hypertension with blood pressure low on initial admission 6. Lactic acidosis from hypotension, improved 7. Chronic persistent A. fib 8. EtOH abuse Plan: continue with current dose of Lasix. Continue SGLT2i hold low-dose angiotensin receptor blockers as blood pressure remains low Repeat labs in a.m.
--- NOTE | 2024-10-22 12:55 | P.PN ---
Subjective Progress Note Date: 10/22/24 Hospital course: Patient is a pleasant 69-year-old male with a past medical history of hypertension, congestive heart failure unknown type, atrial fibrillation no longer on anticoagulation per recommendations of his PCP secondary to low hemoglobin, chronic back pain status post cervical discectomy and fusion, bilateral lower extremity peripheral neuropathy, and daily alcohol use/abuse reported drinking approximately a fifth of liquor daily. He presented to the emergency department with his secondary to complaints of increasing fatigue, generalized weakness, and significant lower extremity edema. Patient's reports he has been battling with lower extremity edema off and on over the past months but states over the last month this edema has progressively worsened and he can no longer even lift his legs or stand up to move secondary to severe swelling that is now went from initially only being in his ankles to now extending up into his thighs and abdomen. In addition patient reports exertional dyspnea and orthopnea. He states he has been following up with his PCP and is scheduled to undergo an echocardiogram, ultrasound of his kidneys, and an upper and lower endoscopy in the next month. He denies having any headache, lightheadedness, dizziness, chest pain, palpitations, shortness of breath at rest, cough or congestion, or any other complaints at time. He does report having a poor appetite secondary to the amount of swelling in his abdomen. Patient does report drinking a fifth of liquor daily, last drink being this morning. Upon arrival to our facility, patient underwent evaluation in the emergency department. Vital signs upon arrival showing blood pressure 97/60, heart rate 55, respiratory rate 18, temp 97.7 F, and SpO2 of 95% on room air. EKG was completed showing atrial fibrillation with a slowed ventricular response of 52 bpm. Chest x-ray negative for acute cardiopulmonary process. Labs completed and reviewed. CBC showing macrocytic anemia with hemoglobin of 8.5 and MCV of 131.6. Coagulation profile normal findings. BMP showing acute kidney injury with BUN of 55, creatinine of 2.26, and GFR of 28 (most recent lab draws completed in 2020 showing a creatinine of 1.3). Lactic acid 2.8. Magnesium 2.7. Liver enzymes normal findings. Troponin negative at less than 0.012 and proBNP 3420. TSH was elevated at 11.00 with normal free T4 of 0.99. Urinalysis negative for blood, ketones, protein, or infection. Serum alcohol level was elevated at 71. Ultrasound kidneys, ureters, and bladder showing no evidence of acute obstructive uropathy revealing a simple appearing cyst in the inferior right kidney measuring 4.2 cm. Patient was given IV Lasix 40 mg IVP x 1 dose and admitted under our services with consultation to cardiology and nephrology. Physical exam: Patient seen and fully evaluated at bedside this morning. Patient sitting up in chair and reports severe sciatica pain right hip radiating down right leg. Patient reports history of sciatica but states it is acting up from hospital bed and sitting in this chair. Order placed for [place] 10/325 mg tablets every 6 hours and Dilaudid 1 mg every 4 hours as needed for severe breakthrough pain. Patient reports breathing is somewhat better but continues to have significant pitting edema throughout entire lower extremities extending throughout thighs. Vital signs reviewed and stable. General: Nontoxic, no distress and appears stated age. Obese. Derm: Skin warm and dry, normal coloration for ethnicity. Head: Atraumatic, normocephalic and symmetric. Eyes: EOM's intact, no lid lag, and anicteric sclera Mouth: no lip lesions, mucus membranes moist Cardiovascular: regular rate and rhythm with normal S1S2, systolic murmur, and cap refill < 2 seconds. Lungs: Respirations even, regular, and unlabored on room air. Lungs diminished, no rhonchi, no rales, no wheezing, and no accessory muscle usage. Abdominal: Obese taut distended abdomen, nontender to palpation, no guarding. Ext: No gross muscle atrophy, 3+ pitting BLE edema extending up into thighs and abdomen. Pt denies scrotal edema. movement and sensation intact. Patient reports severe peripheral neuropathy when ambulating. Neuro: Speech clear, face symmetrical and CN II-XII grossly intact with no noted focal neuro deficits Psych: Alert and oriented to person, place, time, and situation. Appropriate and pleasant affect. Assessment and Plan of Care: Acute exacerbation of chronic heart failure, unknown type pending echocardiogram Significant bilateral lower extremity edema extending into thighs and upwards into abdomen Hypotension upon arrival -Cardiology following recommending continued IV diuresis. -Telemetry monitoring -ProBNP 3420 and troponin was negative at less than 0.012. -Daily weights and strict monitoring of I's and O's -Cardiology decreasing to Lasix 40 mg IVP every 12 hours -Liver Ultrasound showing small volume free fluid in the right upper quadrant and increased hepatic parenchymal echogenicity suggesting steatosis and/or hepatocellular disease. -Echocardiogram revealing reduced EF of 45 to 50%. -Continued close monitoring of electrolytes while diuresing. Acute kidney injury, suspect underlying chronic kidney disease. Improving with IV diuresis. Simple renal cyst of inferior right kidney -Renal ultrasound showing no evidence of acute obstructive uropathy revealing a simple appearing cyst in the inferior right kidney measuring 4.2 cm. -Urinalysis negative for protein, ketones, blood, or infection. 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 -Continue to hold other nephrotoxic medications including olmesartan 40 mg daily. -Continue strict I's and O's. Documented urinary output of 3150 cc over the past 24 hours Pancytopenia with macrocytosis -Unclear cause possibly secondary to underlying undiagnosed cirrhosis versus CKD, versus GI bleed. -Continue vitamin B12 1000 mcg daily. -Patient denies melena or hematochezia and denies any episodes of hematemesis. -Recommend patient follow-up outpatient with plastic top assembler for scheduling of EGD and colonoscopy after optimization of heart failure -Iron 86, TIBC 284, iron percentage saturation 30.28, transferrin 203. -Patient to continue Thiamine 100 mg daily, Cyanocobalamin 1000 mcg daily, Multivitamin daily, and Folate 1 mg daily -Continue close monitoring of hemoglobin levels with repeat morning CBC. Alcohol withdrawal Lactic acidosis, resolved -Serum alcohol level elevated at 71 at time of arrival. Patient reports drinking a fifth of liquor daily. Denies history of hospitalization for withdrawal but states daily drinking for many many years. -Continue monitoring of CIWA scores and patient to be medicated with Ativan 0.5 mg every 4 hours as needed for CIWA score of 4-5, Ativan 1 mg every 4 hours for CIWA score of 6-7, Ativan 2 mg every 3 hours CIWA score of 8-9, and Ativan 2 mg every 2 hours forr CIWA score of 10 or greater. -Thiamine 100 mg daily, cyanocobalamin 1000 mcg daily, Multivitamin daily, and Folate 1 mg daily -Seizure and fall precautions in place. -Continued close monitoring of electrolytes and replace as needed. -Telemetry monitoring. Chronic atrial fibrillation, currently slowed ventricular rate -Cardiology evaluated and secondary to elevated [id number] score, patient was started on Eliquis 5 mg twice daily, however with slight hemoglobin drop Eliquis was discontinued and cardiology recommending follow-up with plastic top assembler.. Hypertension, hypotension upon arrival -Metoprolol discontinued by cardiology and patient started on amlodipine 5 mg daily lower dose metoprolol 50 mg daily. Data and imaging reviewed: -Morning labs reviewed. CBC showing pancytopenia with WBC count of 4.21, hemoglobin 7.8, and platelet count of 119. BMP showing slight improvement of renal function with BUN of 41.5, creatinine of 1.8, GFR 40. Anion gap remains elevated at 14.90. Blood glucose 100. Magnesium 1.8. Liver profile showing elevated total bili of 1.7 otherwise normal findings. -Vital signs reviewed. Blood pressure 114/63, heart rate 89, respiratory rate 18, temp 98.0 F, and SpO2 of 97% on room air. -Documented urinary output of 3150 cc over the past 24 hours CODE STATUS: Full code DVT prophylaxis: Eliquis Anticipated discharge date: Pending clinical course Anticipated discharge place: Pending clinical course Patient was seen independently by Nurse Practitioner. This document was prepared using [employer] dictation software. Please allow for errors in fashion model while rare they do occur. Cosme Lopez NP rendered care for this patient independently, reviewed the findings and plan as documented in the note above and agree with plan. I did not physically speak with or examine the patient on this date. Objective - Vital Signs Vital signs: Vital Signs Temp 98.0 F 10/22/24 07:53 Pulse 89 10/22/24 07:53 Resp 18 10/22/24 07:53 BP 114/63 10/22/24 07:53 Pulse Ox 97 10/22/24 07:53 FiO2 Intake & Output 10/21/24 10/22/24 10/22/24 18:59 06:59 18:59 Intake Total 354 Output Total 2049 1099 Balance -1695 -1099 Weight 139 kg Intake: Oral 354 Output: Urine 2049 1099 Other: Voiding Method Toilet Toilet # Voids 1 # Bowel Movements 2 - Labs CBC & Chem 7: 10/22/24 05:17 10/22/24 05:17 Labs: Abnormal Lab Results - Last 24 Hours (Table) 10/21/24 10/21/24 Range/Units 05:00 05:00 RBC 1.86 L (4.40-5.60) X 10*6/uL Hgb 8.2 L (13.0-17.0) g/dL Hct 24.8 L (39.6-50.0) % MCV 133.3 H (80.0-97.0) FL MCH 44.1 H (27.0-32.0) pg Plt Count 128 L (140-440) X 10*3/uL Anion Gap 15.20 H (4.00-12.00) mmol/L BUN 47.4 H (9.0-27.0) mg/dL Creatinine 2.0 H (0.6-1.5) mg/dL Est GFR (CKD-EPI) 35 L (>=60) BUN/Creatinine Ratio 23.70 H (12.00-20.00) Ratio Total Bilirubin 1.8 H (0.3-1.2) mg/dL ALT 8 L (10-49) U/L
[2024-10-23 08:31] LABS: MCH 43.2 pg (27.0-32.0); MCHC 33.3 g/dL (32.0-37.0); MCV 129.7 FL (80.0-97.0); Mean Platelet Volume 10.5 FL (9.5-12.2); NRBC Per 100 WBC 0 X 10*3/uL (0.00-0.01); Platelet Count 128 X 10*3/uL (140-440); RBC 1.85 X 10*6/uL (4.40-5.60); RDW 14.1 % (11.5-14.5); WBC 5.08 X 10*3/uL (4.50-10.00)
[2024-10-23 08:53] LABS: ALT 8 U/L (10-49); AST 21 U/L (14-35); Albumin 3.9 g/dL (3.8-4.9); Albumin/Globulin Ratio 1.86 Ratio (1.60-3.17); Alkaline Phosphatase 72 U/L (41-126); BUN/Creat Ratio 23.65 Ratio (12.00-20.00); Blood Urea Nitrogen 40.2 mg/dL (9.0-27.0); Calcium 9.6 mg/dL (8.7-10.3); Carbon Dioxide 30.2 mmol/L (21.6-31.8); Chloride 97 mmol/L (96-109); Globulin 2.1 g/dL (1.6-3.3); Glucose 93 mg/dL (70-110); Magnesium 1.6 mg/dL (1.5-2.4); Potassium 3.8 mmol/L (3.5-5.5); Sodium 140 mmol/L (135-145); Total Bilirubin 1.6 mg/dL (0.3-1.2)
--- NOTE | 2024-10-23 09:30 | P.PN ---
Subjective Progress Note Date: 10/23/24 69-year-old with past medical history of hypertension, daily alcohol use, fifth of liquor every day, presented to the hospital because of increased fatigue, generalized weakness, increased lower extremity edema. Patient is a poor historian. He is not able to tell me if he has prior history of congestive heart failure or atrial fibrillation. On admission it is noticed that he was not atrial fibrillation with bradycardia with heart rate in 52 bpm. He denies any symptoms of chest pain chest pressure. He does endorse symptoms of orthopnea and paroxysmal nocturnal dyspnea. He also reports that he gets short of breath with minimal exertion, NYHA class III symptoms. Patient was intoxicated at the time of admission, alcohol level of 71 on admission. 10/23/2024 Patient was seen and examined sitting up in a recliner. Overall he is feeling better. Renal function looks better. Vital signs are stable. His weight is trending downward. Continues to have lower extremity edema. He continues to complain of issues related to the recliner. He complains of urinary hesitancy and will discuss this as an outpatient with his primary. Anthony remains on hold. Hemoglobin 8.0. He continues on IV Lasix. He verbalizes concerns about alcohol withdrawal and will discuss this with the admitting physician. Objective - Vital Signs Vital signs: Vital Signs Temp 97.9 F 10/23/24 07:50 Pulse 92 10/23/24 07:50 Resp 16 10/23/24 07:50 BP 137/68 10/23/24 07:50 Pulse Ox 99 10/23/24 07:50 FiO2 Intake & Output 10/22/24 10/23/24 10/23/24 18:59 06:59 18:59 Intake Total 236 540 Output Total 600 1400 400 Balance -364 -573 -400 Weight 138 kg Intake: Oral 236 540 Output: Urine 600 1400 400 Other: Voiding Method Toilet # Voids 4 - Exam Vital signs reviewed. Head: Normocephalic. Eyes: Sclerae nonicteric. Neck: Brisk carotid upstroke, no jugular venous distention. Lungs: Clear to auscultation. Heart: Regular rate and rhythm, S1-S2, no S3, no murmur or rub. Abdomen: Soft nontender, positive bowel sounds. Extremities: Bilateral lower extremity edema, intact distal pulses, abhinav wraps in place. Neuro: Alert, oritented, no focal deficits. Detailed neuro exam was not performed. - Labs CBC & Chem 7: 10/23/24 04:01 10/23/24 04:01 Labs: Abnormal Lab Results - Last 24 Hours (Table) 10/23/24 10/23/24 Range/Units 04:01 04:01 RBC 1.85 L (4.40-5.60) X 10*6/uL Hgb 8.0 L (13.0-17.0) g/dL Hct 24.0 L (39.6-50.0) % MCV 129.7 H (80.0-97.0) FL MCH 43.2 H (27.0-32.0) pg Plt Count 128 L (140-440) X 10*3/uL Anion Gap 12.80 H (4.00-12.00) mmol/L BUN 40.2 H (9.0-27.0) mg/dL Creatinine 1.7 H (0.6-1.5) mg/dL Est GFR (CKD-EPI) 43 L (>=60) BUN/Creatinine Ratio 23.65 H (12.00-20.00) Ratio Total Bilirubin 1.6 H (0.3-1.2) mg/dL ALT 8 L (10-49) U/L Total Protein 6.0 L (6.2-8.2) g/dL Assessment and Plan Assessment: Acute CHF exacerbation, HFrEF, EF 40%, NYHA class III, orthopnea Bilateral lower extremity edema Persistent atrial fibrillation, rate controlled. Bradycardic on admission. [id number] score 3 HOWIE CKD Daily heavy alcohol use. Fifth of alcohol every day Macrocytic anemia Suspect sleep apnea Obesity Anemia possibly due to chronic kidney disease, other etiologies not ruled out Plan: From cardiology's perspective we will continue to hold Eliquis due to anemia of unclear etiology patient will require further workup in this regard. From our standpoint the patient may be switched to oral Lasix but we will defer this to nephrology. No further cardiac workup at this time. Abstinence from alcohol is recommended. He will follow-up in the office with Dr. Peraza. [employer] JUSTICE note has been reviewed, I agree with a documented findings and plan of care. Patient was seen and examined.
--- NOTE | 2024-10-23 13:09 | P.PN ---
Subjective Progress Note Date: 10/23/24 Hospital course: Patient is a pleasant 69-year-old male with a past medical history of hypertension, congestive heart failure unknown type, atrial fibrillation no longer on anticoagulation per recommendations of his PCP secondary to low hemoglobin, chronic back pain status post cervical discectomy and fusion, bilateral lower extremity peripheral neuropathy, and daily alcohol use/abuse reported drinking approximately a fifth of liquor daily. He presented to the emergency department with his secondary to complaints of increasing fatigue, generalized weakness, and significant lower extremity edema. Patient's reports he has been battling with lower extremity edema off and on over the past months but states over the last month this edema has progressively worsened and he can no longer even lift his legs or stand up to move secondary to severe swelling that is now went from initially only being in his ankles to now extending up into his thighs and abdomen. In addition patient reports exertional dyspnea and orthopnea. He states he has been following up with his PCP and is scheduled to undergo an echocardiogram, ultrasound of his kidneys, and an upper and lower endoscopy in the next month. He denies having any headache, lightheadedness, dizziness, chest pain, palpitations, shortness of breath at rest, cough or congestion, or any other complaints at time. He does report having a poor appetite secondary to the amount of swelling in his abdomen. Patient does report drinking a fifth of liquor daily, last drink being this morning. Upon arrival to our facility, patient underwent evaluation in the emergency department. Vital signs upon arrival showing blood pressure 97/60, heart rate 55, respiratory rate 18, temp 97.7 F, and SpO2 of 95% on room air. EKG was completed showing atrial fibrillation with a slowed ventricular response of 52 bpm. Chest x-ray negative for acute cardiopulmonary process. Labs completed and reviewed. CBC showing macrocytic anemia with hemoglobin of 8.5 and MCV of 131.6. Coagulation profile normal findings. BMP showing acute kidney injury with BUN of 55, creatinine of 2.26, and GFR of 28 (most recent lab draws completed in 2020 showing a creatinine of 1.3). Lactic acid 2.8. Magnesium 2.7. Liver enzymes normal findings. Troponin negative at less than 0.012 and proBNP 3420. TSH was elevated at 11.00 with normal free T4 of 0.99. Urinalysis negative for blood, ketones, protein, or infection. Serum alcohol level was elevated at 71. Ultrasound kidneys, ureters, and bladder showing no evidence of acute obstructive uropathy revealing a simple appearing cyst in the inferior right kidney measuring 4.2 cm. Patient was given IV Lasix 40 mg IVP x 1 dose and admitted under our services with consultation to cardiology and nephrology. Physical exam: Patient seen and fully evaluated at bedside this morning. Patient sitting up in chair and reports feeling better today. He states he cannot sleep in the hospital bed and our recliner is awful. Patient reports his previously reported sciatica and back pain is controlled and he is only sore upon standing from sitting in a recliner's. He reports breathing has improved and has had slight improvement of lower extremity edema. Patient does however continue to have 2+ pitting edema extending up into his thighs. Continues to deny scrotal edema but reports urinary hesitancy, but states when he is able to initiate the stream of his urine he is able to urinate without any difficulties and denies having any urinary retention. Vital signs reviewed and stable. General: Nontoxic, no distress and appears stated age. Obese. Derm: Skin warm and dry, normal coloration for ethnicity. Head: Atraumatic, normocephalic and symmetric. Eyes: EOM's intact, no lid lag, and anicteric sclera Mouth: no lip lesions, mucus membranes moist Cardiovascular: regular rate and rhythm with normal S1S2, systolic murmur, and cap refill < 2 seconds. Lungs: Respirations even, regular, and unlabored on room air. Lungs diminished, no rhonchi, no rales, no wheezing, and no accessory muscle usage. Abdominal: Obese taut distended abdomen, nontender to palpation, no guarding. Ext: No gross muscle atrophy, 2+ pitting BLE edema extending up into thighs and abdomen. Pt denies scrotal edema. movement and sensation intact. Patient repor ts severe peripheral neuropathy when ambulating. Neuro: Speech clear, face symmetrical and CN II-XII grossly intact with no noted focal neuro deficits Psych: Alert and oriented to person, place, time, and situation. Appropriate and pleasant affect. Assessment and Plan of Care: Acute exacerbation of chronic systolic heart failure Significant bilateral lower extremity edema extending into thighs and upwards into abdomen Hypotension upon arrival -Cardiology following , clearing patient from their perspective -Telemetry monitoring -ProBNP 3420 and troponin was negative at less than 0.012. -Daily weights and strict monitoring of I's and O's -Continue Lasix 40 mg IV every 12 hours. -Liver Ultrasound showing small volume free fluid in the right upper quadrant and increased hepatic parenchymal echogenicity suggesting steatosis and/or hepatocellular disease. -Echocardiogram revealing reduced EF of 45 to 50%. -Continued close monitoring of electrolytes while diuresing. Acute kidney injury, suspect underlying chronic kidney disease. Improving with IV diuresis. Simple renal cyst of inferior right kidney -Patient reports urinary hesitancy with initiating stream, but denies urinary retention. Reports urinating without any difficulties after he is able to begin. Discussed with patient and his at bedside that he will need prostate examination and further workup by PCP. -Renal ultrasound showing no evidence of acute obstructive uropathy revealing a simple appearing cyst in the inferior right kidney measuring 4.2 cm. -Urinalysis negative for protein, ketones, blood, or infection. -Nephrology following, reviewed documentation in chart and weather reporter in agreement with current dose of Lasix at this time.. -Continue to hold other nephrotoxic medications including olmesartan 40 mg daily. -Continue strict I's and O's. Documented urinary output of 2000 cc over the past 24 hours Pancytopenia with macrocytosis -Unclear cause possibly secondary to underlying undiagnosed cirrhosis versus CKD, versus GI bleed. -Continue vitamin B12 1000 mcg daily. -Patient denies melena or hematochezia and denies any episodes of hematemesis. -Recommend patient follow-up outpatient with plastic battery assembler for scheduling of EGD and colonoscopy after optimization of heart failure -Iron 86, TIBC 284, iron percentage saturation 30.28, transferrin 203. -Patient to continue Thiamine 100 mg daily, Cyanocobalamin 1000 mcg daily, Multivitamin daily, and Folate 1 mg daily -Continue close monitoring of hemoglobin levels with repeat morning CBC. Alcohol withdrawal Lactic acidosis, resolved -Patient CIWA scores have been low, patient reports "it is because I drink cheap whiskey". He is however expressing concern over what to do with withdrawal symptoms after discharge. Patient strongly encouraged to refrain from any and all alcohol use. Discussed options with patient and patient's at bedside, patient and his both stated they will discuss further with his PCP. -Continue monitoring of CIWA scores and patient to be medicated with Ativan 0.5 mg every 4 hours as needed for CIWA score of 4-5, Ativan 1 mg every 4 hours for CIWA score of 6-7, Ativan 2 mg every 3 hours CIWA score of 8-9, and Ativan 2 mg every 2 hours forr CIWA score of 10 or greater. -Thiamine 100 mg daily, cyanocobalamin 1000 mcg daily, Multivitamin daily, and Folate 1 mg daily -Seizure and fall precautions in place. -Continued close monitoring of electrolytes and replace as needed. -Telemetry monitoring. Chronic atrial fibrillation, currently slowed ventricular rate -Cardiology evaluated and secondary to elevated [id number] score, patient was started on Eliquis 5 mg twice daily, however with slight hemoglobin drop Eliquis was discontinued and cardiology recommending follow-up with plastic battery assembler.. Hypertension, hypotension upon arrival -Metoprolol discontinued by cardiology and patient started on amlodipine 5 mg daily lower dose metoprolol 50 mg daily. Data and imaging reviewed: -Morning labs reviewed. CBC showing macrocytic anemia with hemoglobin of 8.0 and MCV of 129.7. BMP showing elevated anion gap of 12.80, BUN of 40.2, creatinine 1.7, and GFR 43. Blood glucose 93. Magnesium was low at 1.6. Liver profile showing elevated total bili of 1.6 otherwise no significant abnormalities. -Vital signs reviewed. Blood pressure 137/68, heart rate 92, respiratory rate 1 6, temp 97.9 F, and SpO2 of 99% on room air. -Documented urinary output of 2000 cc over the past 24 hours CODE STATUS: Full code DVT prophylaxis: Eliquis Anticipated discharge date: Pending clinical course Anticipated discharge place: Pending clinical course Patient was seen independently by Nurse Practitioner. This document was prepared using [employer] dictation software. Please allow for errors in clothes drier assembler while rare they do occur. Cosme Lopez NP rendered care for this patient independently, reviewed the findings and plan as documented in the note above and agree with plan. I did not physically speak with or examine the patient on this date. Objective - Vital Signs Vital signs: Vital Signs Temp 97.9 F 10/23/24 07:50 Pulse 92 10/23/24 07:50 Resp 16 10/23/24 07:50 BP 137/68 10/23/24 07:50 Pulse Ox 99 10/23/24 07:50 FiO2 Intake & Output 1110/23/24 10/23/24 18:59 06:59 18:59 Intake Total 236 540 Output Total 600 1400 Balance -364 -860 Weight 138 kg Intake: Oral 236 540 Output: Urine 600 1400 Other: Voiding Method Toilet # Voids 4 - Labs CBC & Chem 7: 10/23/24 04:01 10/23/24 04:01 Labs: Abnormal Lab Results - Last 24 Hours (Table) 10/22/24 10/22/24 Range/Units 05:17 05:17 WBC 4.21 L (4.50-10.00) X 10*3/uL RBC 1.83 L (4.40-5.60) X 10*6/uL Hgb 7.8 L (13.0-17.0) g/dL Hct 24.0 L (39.6-50.0) % MCV 131.1 H (80.0-97.0) FL MCH 42.6 H (27.0-32.0) pg Plt Count 119 L (140-440) X 10*3/uL Anion Gap 14.90 H (4.00-12.00) mmol/L BUN 41.5 H (9.0-27.0) mg/dL Creatinine 1.8 H (0.6-1.5) mg/dL Est GFR (CKD-EPI) 40 L (>=60) BUN/Creatinine Ratio 23.06 H (12.00-20.00) Ratio Total Bilirubin 1.7 H (0.3-1.2) mg/dL ALT 7 L (10-49) U/L Total Protein 5.9 L (6.2-8.2) g/dL
[2024-10-23] MEDS: MAGNESIUM SULFATE-D5W PMX 1 GM in DEXTROSE/WATER 1 100ML.BAG IVPB SCH (14:03)
[2024-10-24 07:05] VITALS: BP 128/63; PULSE 81; RESP 16; TEMP 98.3
--- NOTE | 2024-10-24 10:50 | P.DS ---
Providers Date of admission: 10/19/24 14:49 Attending physician: Kuldip Fuentes Consults: 10/19/24 12:38 Consult Physician Routine Consulting Provider: Avni Ramirez Consult Reason/Comments: eval for chf Do you want consulting provider notified?: Yes Consult Physician Routine Consulting Provider: Virginia Smalls Consult Reason/Comments: ced Do you want consulting provider notified?: Yes Primary care physician: Paulino Alberts - Discharge Diagnosis(es) (1) Acute kidney injury Current Visit: Yes Status: Acute (2) Acute exacerbation of CHF (congestive heart failure) Current Visit: Yes Status: Acute (3) Alcohol use Current Visit: Yes Status: Acute Hospital Course: The patient was hospitalized and was seen by Nephrology, Cardiology and had his Lasix adjusted. The patient's renal function improved and plan was for discharge with Lasix 40 mg PO BID with outpatient follow up The patient was seen by me today. His lower extremity edema is stable he is speaking full sentences and lungs are clear Time spent 32 minutes Patient Condition at Discharge: Stable Plan - Discharge Summary Discharge Rx Participant: No New Discharge Prescriptions: No Action Metoprolol Tartrate [Lopressor] 200 mg PO DAILY Folic Acid 470mg 470 mg PO DAILY Levothyroxine Sodium [Synthroid] 50 mcg PO AC-BRKFST hydroCHLOROthiazide [Hydrodiuril] 25 mg PO DAILY amLODIPine [Norvasc] 10 mg PO DAILY Olmesartan Medoxomil 40 mg PO DAILY Furosemide [Lasix] 40 mg PO BID Thiamine [Vitamin B-1] 100 mg PO DAILY Cyanocobalamin (Vitamin B-12) [Vitamin B-12] 1,000 mcg PO DAILY Glucosamine Sulfate 1,000 mg PO DAILY Discharge Medication List Metoprolol Tartrate [Lopressor] 200 mg PO DAILY 12/07/15 [History] Cyanocobalamin (Vitamin B-12) [Vitamin B-12] 1,000 mcg PO DAILY 10/19/24 [History] Folic Acid 470mg 470 mg PO DAILY 10/19/24 [History] Glucosamine Sulfate 1,000 mg PO DAILY 10/19/24 [History] Levothyroxine Sodium [Synthroid] 50 mcg PO AC-BRKFST 10/19/24 [History] Olmesartan Medoxomil 40 mg PO DAILY 10/19/24 [History] Thiamine [Vitamin B-1] 100 mg PO DAILY 10/19/24 [History] amLODIPine [Norvasc] 10 mg PO DAILY 10/19/24 [History] hydroCHLOROthiazide [Hydrodiuril] 25 mg PO DAILY 10/19/24 [History] Furosemide [Lasix] 40 mg PO BID 10/24/24 [History] Follow up Appointment(s)/Referral(s): Tova Peraza MD [STAFF PHYSICIAN] - 1 Week (Recommend outpatient follow up for eval and scheduling of EGD/Colonoscopy for outpatient anemia workup) Paulino Alberts DO [Primary Care Provider] - 1-2 days Santiago Peraza MD [STAFF PHYSICIAN] - 2 Weeks Patient Instructions/Handouts: Heart Failure (DC), Acute Kidney Injury (DC) Discharge/Stand Alone Forms: AA Meetings Dist [facility] - [facility], AA Meetings [facility], Community Resources, Outpatient Counseling, In Substance Abuse Facilities Discharge Disposition: HOME SELF-CARE
--- NOTE | 2024-10-24 11:21 | P.PN ---
Subjective patient is seen for follow-up for acute kidney injury and volume overload. Currently being diuresed. Serum creatinine decreased to 1.7. Overall feeling better. Legs remains significantly edematous. Shortness of breath has improved. Patient wants to go home. Objective - Vital Signs Vital signs: Vital Signs Temp 98.3 F 10/24/24 07:04 Pulse 81 10/24/24 07:04 Resp 16 10/24/24 07:04 BP 128/63 10/24/24 07:04 Pulse Ox 96 10/24/24 07:04 FiO2 Intake & Output 10/23/24 10/24/24 10/24/24 18:59 06:59 18:59 Intake Total 476 Output Total 1600 1600 Balance -1124 -1600 Weight 134.5 kg Intake: Oral 476 Output: Urine 1600 1600 Other: Voiding Method Toilet # Voids 50 - Exam patient is awake, comfortable, no acute distress. Alert oriented 3 Examination of lower extremities shows chronic skin changes with bilateral edema 2+. BOILER OPERATOR exam grossly intact - Labs CBC & Chem 7: 10/23/24 04:01 10/23/24 04:01 Assessment and Plan Assessment: 1. Acute kidney injury, ATN from hypotension and cardiorenal. Maintained on IV diuretics. UA is benign. Ultrasound shows no evidence of obstructive uropathy. Simple cyst right kidney 2. Volume overload 3. Cardiomyopathy with EF of 45-50% 4. Anemia rule out iron deficiency. 5. Hypertension with blood pressure low on initial admission 6. Lactic acidosis from hypotension, improved 7. Chronic persistent A. fib 8. EtOH abuse Plan: can be switched to oral Lasix and okay to discharge home. Discussed salt and fluid restriction. Continue SGLT2i
--- NOTE | 2024-10-26 19:19 | CDI ---
Documentation Clarification Form Date: 10/26/2024 07:09:48 PM From: Sarah Dockery Phone: Admit Date: 10/19/2024 02:49:00 PM Patient Name: Bryson Salinas Visit Number: [id number] Discharge Date: 10/24/2024 11:58:00 AM ATTENTION: The Clinical Documentation Specialists (CDI) and [facility] Coding Staff appreciate your assistance in clarifying documentation. Please respond to the clarification below the line at the bottom and electronically sign. The CDI & [facility] Coding staff will review the response and follow-up if needed. Please note: Queries are made part of the Legal Health Record. If you have any questions, please contact the author of this message via ITS. Doctor/Provider: Virginia Smalls Unspecified CKD is documented per Consult 10/20 and 10/21-10/23 Progress Notes. Additional clarification regarding the stage of CKD is requested. History/Risk Factors: 69yo M, ATN,hypotension, simple cystRT kidney, ACSHF, HTN, CM, acidosis, chronicpersistentA. fib, EtOH abuse Clinical Indicators: BUN/Creatinine Ratio 23.70 BUN: 10/19 55 10/20 56 10/21 47.4 CR: 10/19 2.26 10/20 1.96 10/21 2.0 10/22 1.8 GFR: 28-43 Treatment: Maintained on IV diuretics. UA is benign. Ultrasoundshows no evidence ofobstructive uropathy. Can be switched to oral Lasix and okay to discharge home. Discussed salt and fluidrestriction. Continue SGLT2i Please clarify the stage of the CKD, if known: [ x ] CKD Stage 3a [ ] CKD Stage 3b [ ] CKD Stage 4 [ ] Other, please specify [ ] Unable to determine Reference: National Kid[employer] Stage 1 eGFR = 90 and kidney damage for =3 months Stage 2 eGFR 60-89 and kidney damage for =3 months Stage 3a eGFR 45-59 and kidney damage for =3 months Stage 3b eGFR 30-44 and kidney damage for =3 months Stage 4 eGFR 15-29 r and kidney damage for =3 months Stage 5 eGFR <15 and kidney damage for =3 months (Template last revised: November 2023) MTDD
== END 2024-10-24 11:58 | disposition home or self-care (01) | DRG 291 ==
LOC: EC 09:09 → 6NMEDSUR 12:38 → OBSVTOIN 14:49 → 6NMEDSUR 17:52
PROVIDERS: ADMIT Student in an Organized Health Care Education/Training Program; ATTEND Student in an Organized Health Care Education/Training Program
DX: I13.0 Hypertensive heart and chronic kidney disease with heart failure and stage 1 through stage 4 chronic kidney disease, or unspecified chronic kidney disease (principal); I50.23 Acute on chronic systolic (congestive) heart failure; N17.0 Acute kidney failure with tubular necrosis; E87.20 Acidosis, unspecified; D61.818 Other pancytopenia; I48.19 Other persistent atrial fibrillation; F10.139 Alcohol abuse with withdrawal, unspecified; D63.1 Anemia in chronic kidney disease; I95.9 Hypotension, unspecified; I42.9 Cardiomyopathy, unspecified; F10.129 Alcohol abuse with intoxication, unspecified; N18.31 Chronic kidney disease, stage 3a; D53.9 Nutritional anemia, unspecified; E66.9 Obesity, unspecified; G62.9 Polyneuropathy, unspecified; G47.30 Sleep apnea, unspecified; F17.220 Nicotine dependence, chewing tobacco, uncomplicated; D75.89 Other specified diseases of blood and blood-forming organs; G89.29 Other chronic pain; R39.11 Hesitancy of micturition; N28.1 Cyst of kidney, acquired; Y90.3 Blood alcohol level of 60-79 mg/100 ml; Z98.1 Arthrodesis status; Z79.890 Hormone replacement therapy; Z79.899 Other long term (current) drug therapy
CPT/HCPCS: 36415; 71046; 76705; 76770; 80053; 80061; 80320; 81001; 83036; 83540; 83550; 83605; 83735; 83880; 84439; 84443; 84481; 84484; 85025; 85027; 85610; 85730; 93005; 93306; 96374; 96376; 99285

== ENCOUNTER 2024-11-26 06:14 | Day surgery (SDC) | payer MEDICARE ==
[~2024-11-26 06:14] MED LIST: LIDOCAINE 1% (10MG/ML) FOR IV START INTRADERMA PRN
[2024-11-26 07:15] VITALS: TEMP 97.5
[2024-11-26] MEDS: LACTATED RINGERS 1,000 ML IV SCH (07:29)
[2024-11-26] MEDS: IV FLUID CONTINUATION 1,000 ML IV ONE ×2 (07:29→07:43)
[2024-11-26] MEDS ORDERED: PROPOFOL 10 MG/ML 20 ML VIAL IV ONE (07:45)
--- NOTE | 2024-11-26 08:10 | P.PCN ---
Date of Procedure: 11/26/24 Procedure(s) Performed: Brief history: Patient is a pleasant 69-year-old white male scheduled for an elective upper endoscopy as well as colonoscopy as a part of evaluation of iron deficiency anemia. He denies any GI bleed. No history of peptic ulcer disease or recent NSAID use. Procedure performed: Esophagogastroduodenoscopy with biopsy Colonoscopy Preoperative diagnosis: Iron deficiency anemia Anesthesia: MAC Procedure: After informed consent was obtained from the patient was brought into the e ndoscopy unit and IV sedation was administered by anesthesia under continuous monitoring. Initially upper endoscopy was done. The Olympus GF 160 video endoscope was inserted inserted into the mouth and esophagus intubated without any difficulty and was gradually advanced into the stomach and duodenum and carefully examined. The bulb and second part of the duodenum Patchy atrophic appearing mucosa and biopsies were done from this area to evaluate for celiac disease. The scope was then withdrawn into the stomach adequately insufflated with air and upon careful examination the antrum had mi ld antral gastritis and biopsies were done from this area. In the proximal antrum there was a 3 cm smooth, soft submucosal nodule identified and multiple biopsies were done from this area. Mucosa of the body, cardia and fundus appeared normal. The scope was then withdrawn into the esophagus. The GE junction was located at 40 cm to the incisors. It appeared regular with no erythema erosions or ulcerations. Rest of the esophagus appeared normal. Patient tolerated the procedure well. At this time the patient continued to remain sedation. Initial digital rectal examination was normal. Olympus CF 160 video colonoscope was then inserted into the rectum and gradually advanced to the cecum without any difficulty. Careful examination was performed as the scope was gradually being withdrawn. The prep was excellent. The cecum, ascending colon, transverse colon, descending colon, sigmoid colon and rectum appeared normal. Retroflexion was performed in the rectum and no lesions were noted. Patient tolerated the procedure well. Impression: 1. Upper endoscopy revealed mild duodenitis, antral gastritis and a 3 cm submucosal smooth antral lesion, status post multiple biopsies 2. Colonoscopy was within normal limits with no evidence of colitis or colorectal neoplasia Recommendations: Findings of this examination were discussed with the patient as well as his family. He was advised to follow-up with the biopsy results. Will obtain celiac panel. He will be seen in the office in 2 weeks. Based on the biopsy results we will consider endoscopy ultrasound of the gastric submucosal lesion..
[2024-11-26 08:45] VITALS: RESP 18
[2024-11-26 09:07] VITALS: BP 105/70; PULSE 78
[2024-11-26 17:41] LABS: Gliadin AB IgA, Deaminated Negative (Negative); Gliadin AB IgA, Unit 0.5 U/mL; Gliadin AB IgG, Deaminated Negative (Negative); Gliadin AB IgG, Unit <0.4 U/mL
== END 2024-11-26 09:10 | disposition home or self-care (01) ==
LOC: ORWHC2ENDO 06:14
PROVIDERS: ATTEND Internal Medicine Gastroenterology
DX: D50.9 Iron deficiency anemia, unspecified (principal); D52.9 Folate deficiency anemia, unspecified; K29.50 Unspecified chronic gastritis without bleeding; K29.80 Duodenitis without bleeding; K31.7 Polyp of stomach and duodenum; I11.0 Hypertensive heart disease with heart failure; I50.9 Heart failure, unspecified; E07.9 Disorder of thyroid, unspecified; M10.9 Gout, unspecified; G62.9 Polyneuropathy, unspecified; F10.29 Alcohol dependence with unspecified alcohol-induced disorder; Z79.890 Hormone replacement therapy; Z79.899 Other long term (current) drug therapy; Z98.1 Arthrodesis status
CPT/HCPCS: 83516 ×4; 45378; 43239; J2704; 88305

== ENCOUNTER → 2024-12-09 | Outpatient (CLI) | payer MEDICARE ==
[2024-12-09 23:11] LABS: BUN/Creat Ratio 23.57 Ratio (12.00-20.00); Calcium 9.9 mg/dL (8.7-10.3); Carbon Dioxide 20.8 mmol/L (21.6-31.8); Chloride 103 mmol/L (96-109); Glucose 103 mg/dL (70-110); Potassium 4.4 mmol/L (3.5-5.5); Sodium 141 mmol/L (135-145)
[2024-12-10 00:47] LABS: NT-Pro-B-Type Natriuretic Pept 1683 pg/mL (0-125)
== END | disposition home or self-care (01) ==
LOC: LABWHC1 13:56
PROVIDERS: ATTEND Internal Medicine Cardiovascular Disease
DX: I50.22 Chronic systolic (congestive) heart failure (principal)
CPT/HCPCS: 36415; 80048; 83880

== ENCOUNTER → 2024-12-17 | Outpatient (CLI) | payer MEDICARE ==
[2024-12-17 15:07] LABS: Basophils # (A) 0.03 X 10*3/uL (0.00-0.10); Basophils % (A) 0.7 %; Eosinophils # (A) 0.15 X 10*3/uL (0.04-0.35); Eosinophils % (A) 3.5 %; HCT 27.6 % (39.6-50.0); HGB 8.7 g/dL (13.0-17.0); Lymphocytes % (A) 23.1 %; MCH 29.5 pg (27.0-32.0); MCHC 31.5 g/dL (32.0-37.0); MCV 93.6 FL (80.0-97.0); Mean Platelet Volume 10.2 FL (9.5-12.2); Monocytes # (A) 0.34 X 10*3/uL (0.20-1.00); Monocytes % (A) 7.9 %; NRBC Per 100 WBC 0 X 10*3/uL (0.00-0.01); Neutrophils % (A) 64.6 %; Platelet Count 195 X 10*3/uL (140-440); RBC 2.95 X 10*6/uL (4.40-5.60); WBC 4.33 X 10*3/uL (4.50-10.00)
[2024-12-17 15:34] LABS: % Iron Saturation 11.05 (15.00-50.00)
== END | disposition home or self-care (01) ==
LOC: LABWHC1 12:00
PROVIDERS: ATTEND Internal Medicine Gastroenterology
DX: D53.9 Nutritional anemia, unspecified (principal)
CPT/HCPCS: 36415; 82607; 82728; 83540; 83550; 85025

== ENCOUNTER → 2025-03-21 | Outpatient (CLI) | payer MEDICARE ==
[2025-03-21 15:33] LABS: ALT 14 U/L (10-49); AST 17 U/L (14-35); Albumin 4.2 g/dL (3.8-4.9); Alkaline Phosphatase 79 U/L (41-126); BUN/Creat Ratio 18.11 Ratio (12.00-20.00); Blood Urea Nitrogen 32.6 mg/dL (9.0-27.0); Calcium 10.3 mg/dL (8.7-10.3); Carbon Dioxide 30.4 mmol/L (21.6-31.8); Chloride 102 mmol/L (96-109); Globulin 2.1 g/dL (1.6-3.3); Glucose 98 mg/dL (70-110); Magnesium 2.6 mg/dL (1.5-2.4); Phosphorus 4.3 mg/dL (2.4-5.1); Sodium 142 mmol/L (135-145); Total Bilirubin 0.7 mg/dL (0.3-1.2); Total Protein 6.3 g/dL (6.2-8.2)
[2025-03-21 16:51] LABS: Basophils # (A) 0.04 X 10*3/uL (0.00-0.10); Basophils % (A) 0.9 %; Eosinophils # (A) 0.15 X 10*3/uL (0.04-0.35); Eosinophils % (A) 3.3 %; HCT 32.3 % (39.6-50.0); HGB 10.3 g/dL (13.0-17.0); Lymphocytes # (A) 1.31 X 10*3/uL (0.90-5.00); MCH 28.7 pg (27.0-32.0); MCHC 31.9 g/dL (32.0-37.0); Mean Platelet Volume 10.9 FL (9.5-12.2); Monocytes # (A) 0.33 X 10*3/uL (0.20-1.00); Monocytes % (A) 7.3 %; NRBC Per 100 WBC 0 X 10*3/uL (0.00-0.01); Neutrophils # (A) 2.67 X 10*3/uL (1.80-7.70); Neutrophils % (A) 59.1 %; Platelet Count 168 X 10*3/uL (140-440); RBC 3.59 X 10*6/uL (4.40-5.60); RDW 15.1 % (11.5-14.5); WBC 4.52 X 10*3/uL (4.50-10.00)
[2025-03-21 18:55] LABS: Microalbumin Creatinine Ratio <11 mg/g Cr (0-30)
[2025-03-21 21:07] LABS: Appearance,Urine Clear (Clear); Bilirubin,Urine Negative (Negative); Blood,Urine Negative (Negative); Color,Urine Yellow (Yellow); Ketones,Urine Negative (Negative); Nitrite,Urine Negative (Negative); PH, Urine 7.5; Specific Gravity,Urine 1.015 (1.001-1.030); Urobilinogen,Urine 0.2 E.U./DL
[2025-03-21 21:17] LABS: Bacteria,Urine None Seen (None Seen)
== END | disposition home or self-care (01) ==
LOC: LABWHC1 12:03
PROVIDERS: ATTEND Internal Medicine
DX: N17.9 Acute kidney failure, unspecified (principal)
CPT/HCPCS: 36415; 80053; 81001; 82043; 82570; 83735; 84100; 85025